=== PATIENT | female | born 1960 | race Caucasian/White ===

== ENCOUNTER → 2018-05-29 08:45 | Outpatient (CLI) | payer OTHER, SELFPAY ==
[2018-05-29 09:07] LABS: Add Manual Diff / Slide Review NO; Basophils Percent Auto 0.8 % (0-2); Eosinophils Percent Auto 1.9 % (2-4); Hematocrit 38.9 % (36-46); Lymphocytes Percent Auto 16.3 % (25-40); Mean Corpuscular HGB Conc 33.4 % (30-36); Mean Corpuscular Hemoglobin 31.1 PG (26-34); Monocytes Percent Auto 8.1 % (3-14); Neutrophils Absolute Auto 4700 /uL (3000-5900); Neutrophils Percent Auto 72.9 % (50-75); Platelet Count 239 X10^3/uL (150-400); Red Blood Cell Count 4.19 X10^6/uL (4.0-5.2); Red Cell Distribution Width 13.9 % (11.6-14.8); White Blood Cell Count 6.5 X10^3/uL (4.5-11.0)
[2018-05-29 09:16] LABS: Alanine Aminotransferase 28 IU/L (9-52); Albumin 4.5 g/dL (3.5-5.0); Albumin Globulin Ratio 1.6 (1.0-2.8); Alkaline Phosphatase 44 U/L (38-126); Aspartate Aminotransferase 32 IU/L (14-36); BUN Creatinine Ratio 23.3 (6-22); Bilirubin Total 0.3 mg/dL (0.2-1.3); Blood Urea Nitrogen 21 mg/dL (7-17); Calcium 9.5 mg/dL (8.4-10.2); Carbon Dioxide 31 mmol/L (22-32); Chloride 102 mmol/L (98-107); Estimated Glomerular Filt Rate > 60.0 mL/min (>60); Globulin 2.9 g/dL (1.7-4.1); Glucose 97 mg/dL (70-100); HEMOLYSIS < 15 (0-50); Potassium 4.2 mmol/L (3.4-5.1); Sodium 143 mmol/L (137-145); Total Protein 7.4 g/dL (6.3-8.2)
[2018-05-31 15:45] LABS: Cancer Antigen 27.29 23 U/mL (< 38)
== END ==
PROVIDERS: Family Provider Family Medicine; PCP Family Medicine; Visit Provider Nurse Practitioner Gerontology
DX: Z09 Encounter for follow-up examination after completed treatment for conditions other than malignant neoplasm (principal); Z86.000 Personal history of in-situ neoplasm of breast
CPT/HCPCS: 36415; 80053; 85025; 86300

== ENCOUNTER 2018-08-16 13:00 | Outpatient (RCR) | payer OTHER, SELFPAY ==
--- NOTE | 2018-07-05 13:02 | PT.OTN ---
Current Diagnoses Displaced bimalleolar fracture of left lower leg, initial encounter for closed fracture (07/05/18) Physical Therapy Treatment Note PT-OP-A Visit Information Start: 06/27/18 09:00 Freq: Status: Active Protocol: Document 07/05/18 11:11 EA (Rec: 07/05/18 11:16 EA [id number]) Out-Patient Physical Therapy Visit Information Visit Information Visit Type Treatment Note Visit Start Time 10:30 Visit Stop Time 11:10 Total Visit Minutes 40 Visit Number 2 PT-OP-B Current Condition Start: 06/27/18 09:00 Freq: Status: Active Protocol: Document 06/27/18 10:11 EA (Rec: 06/27/18 10:28 EA [id number]) Current Condition History of Current Condition Onset Date 03/2016 Current Complaints Left ankle localized pain with occasional dorsum numbness History of Current Condition Present condition started after ankle ORIF on due to bimalleolar comminuted fracture. Patient reports 80% recovered after formal PT but pain and aches did not resolved until today's date. Patient went to her doctor a month ago and reports no significant tissue damaged or DJD noted based on x-ray taken last month. Prior Treatments and Tests Fromal PT in 2016 after surgery Future Testing and Treatments Planned Possible rods/nail removal if PT fails Treatment Goals Patient/Caregiver Goals Patient wants to reduce ankle pain from 5/10 to 1/10. Patient wants to be able to go down stairs without difficulty Prior Functional Status Baseline Function- ADL's Independent Baseline Function- Mobility Independent Baseline Function- Gait Indep prior to surgery in 2016 Baseline Function- Work/School House Baseline Function- Recreation/Hobbies Performed regular yoga and fitness exercises Current Functional Impairments (Reported) Functional Limitations- ADL's Indep Functional Limitations- Mobility/Gait Standing, distance amb < 5 minutes Functional Limitations- Work/School House Functional Limitations- Recreation/ Unable to perform regular Hobbies fitness exercises routine due to increased in pain PT-OP-C Subjective Start: 06/27/18 09:00 Freq: Status: Active Protocol: Document 07/05/18 11:11 EA (Rec: 07/05/18 11:16 EA [id number]) OP-PT Subjective Patient Comments Patient Comments Pt reports complaint with HEP Patient Reported Progress Same PT-OP-G Mobility & Gait Start: 06/27/18 09:00 Freq: Status: Active Protocol: Document 06/27/18 14:30 EA (Rec: 06/27/18 14:36 EA [id number]) OP Gait Assessment Gait Gait Assistance Required: Independent Assistive Devices Assistive Device None Gait Deviations General Gait Pattern Antalgic Comments Gait Comments Slight decreased stance phase to left side Stair Climbing Evaluation Devices Stair Climbing Assistive Devices None Technique/Endurance Stair Climbing Direction Ascend and Descend Stair Climbing Technique Step to Step Comments Stair Climbing Comments Difficulty with descent. ( right foot leading) PT-OP-J Posture/Palpation/Skin Start: 06/27/18 09:00 Freq: Status: Active Protocol: Document 06/27/18 14:30 EA (Rec: 06/27/18 14:36 EA [id number]) Posture Evaluation Comments Posture Comments Slight pronated ankle Palpation Assessment Location One Palpation Location Medial, anterior and lateral prox L ankle joint, soleous Palpation Findings Soft Tissue Tightness Tenderness Palpation Details Mostly over the scar areas, Tight soleous PT-OP-K Range of Motion Start: 06/27/18 09:00 Freq: Status: Active Protocol: Document 06/27/18 14:36 EA (Rec: 06/27/18 14:39 EA [id number]) Ankle and Foot Goniometric Range of Motion Ankle and Foot Measured in Degrees Right Active Ankle/Foot ROM WFL Yes Left Active Testing Position Sitting Dorsiflexion with Knee Flexed 10 Dorsiflexion with Knee Extended 15 Plantarflexion 50 Inversion 35 Eversion 25 Toe Range of Motion Toe Measured in Degrees Left Great Toe Toe ROM WFL Yes PT-OP-L Special Tests Start: 06/27/18 09:00 Freq: Status: Active Protocol: Document 06/27/18 14:43 EA (Rec: 06/27/18 14:44 EA [id number]) Special Tests Foot/Ankle Special Tests Anterior Draw Test Results negative Talor Tilt Test Results negative PT-OP-Q Treatments Start: 06/27/18 09:00 Freq: Status: Active Protocol: Document 07/05/18 11:11 EA (Rec: 07/05/18 11:16 EA [id number]) Cardio Equipment Elliptical Duration (Minutes) 6 Resistance 4 Other heel up Therapeutic Exercises Standing Exercises 2 Standing Exercise Name single heel raises Side left Reps/Minutes x 10 reps x 2 sets Comments hand support 1 Standing Exercise Name step down FWD/BWD 6 Side bilateral Reps/Minutes 10 reps x 2 Comments Leading right: hand support Manual Therapy Treatment Soft Tissue Mobilization 1 Body Location Left calf, and ankle joint Mobilization Type Manual Lymphatic Drainage Myofascial Release Rolling Sustained Pressure Trigger Point Release Intensity/Depth Moderate Body Position Prone/sitting PT-OP-R Modalities Start: 06/27/18 09:00 Freq: Status: Active Protocol: Document 07/05/18 12:58 EA (Rec: 07/05/18 12:59 EA [id number]) Hot Pack/Cold Pack Treatment Hot Pack Patient Position Sitting Patient Tolerance Fair PT-OP-T Assessment and Plan Start: 06/27/18 09:00 Freq: Status: Active Protocol: Document 07/05/18 12:58 EA (Rec: 07/05/18 12:59 EA [id number]) Physical Therapy Assessment Assessment Summary Assessment Patient tolerated treatment well. Improved symptoms after manual PT. Physical Therapy Plan Next Visit Focus/Plan Next Note Type Treatment Note
--- NOTE | 2018-07-09 10:57 | PT.OTN ---
Current Diagnoses Displaced bimalleolar fracture of left lower leg, initial encounter for closed fracture (07/09/18) Physical Therapy Treatment Note PT-OP-A Visit Information Start: 06/27/18 09:00 Freq: Status: Active Protocol: Document 07/09/18 10:29 EA (Rec: 07/09/18 10:30 EA [id number]) Out-Patient Physical Therapy Visit Information Visit Information Visit Type Treatment Note Visit Start Time 09:45 Visit Stop Time 10:30 Total Visit Minutes 40 Visit Number 3 PT-OP-B Current Condition Start: 06/27/18 09:00 Freq: Status: Active Protocol: Document 06/27/18 10:11 EA (Rec: 06/27/18 10:28 EA [id number]) Current Condition History of Current Condition Onset Date 03/2016 Current Complaints Left ankle localized pain with occasional dorsum numbness History of Current Condition Present condition started after ankle ORIF on due to bimalleolar comminuted fracture. Patient reports 80% recovered after formal PT but pain and aches did not resolved until today's date. Patient went to her doctor a month ago and reports no significant tissue damaged or DJD noted based on x-ray taken last month. Prior Treatments and Tests Fromal PT in 2016 after surgery Future Testing and Treatments Planned Possible rods/nail removal if PT fails Treatment Goals Patient/Caregiver Goals Patient wants to reduce ankle pain from 5/10 to 1/10. Patient wants to be able to go down stairs without difficulty Prior Functional Status Baseline Function- ADL's Independent Baseline Function- Mobility Independent Baseline Function- Gait Indep prior to surgery in 2016 Baseline Function- Work/School House Baseline Function- Recreation/Hobbies Performed regular yoga and fitness exercises Current Functional Impairments (Reported) Functional Limitations- ADL's Indep Functional Limitations- Mobility/Gait Standing, distance amb < 5 minutes Functional Limitations- Work/School House Functional Limitations- Recreation/ Unable to perform regular Hobbies fitness exercises routine due to increased in pain PT-OP-C Subjective Start: 06/27/18 09:00 Freq: Status: Active Protocol: Document 07/09/18 09:50 EA (Rec: 07/09/18 10:29 EA [id number]) OP-PT Subjective Patient Comments Patient Comments Pt reports left foot is quite sore after last session; stated a bit better today. PT-OP-G Mobility & Gait Start: 06/27/18 09:00 Freq: Status: Active Protocol: Document 06/27/18 14:30 EA (Rec: 06/27/18 14:36 EA [id number]) OP Gait Assessment Gait Gait Assistance Required: Independent Assistive Devices Assistive Device None Gait Deviations General Gait Pattern Antalgic Comments Gait Comments Slight decreased stance phase to left side Stair Climbing Evaluation Devices Stair Climbing Assistive Devices None Technique/Endurance Stair Climbing Direction Ascend and Descend Stair Climbing Technique Step to Step Comments Stair Climbing Comments Difficulty with descent. ( right foot leading) PT-OP-J Posture/Palpation/Skin Start: 06/27/18 09:00 Freq: Status: Active Protocol: Document 06/27/18 14:30 EA (Rec: 06/27/18 14:36 EA [id number]) Posture Evaluation Comments Posture Comments Slight pronated ankle Palpation Assessment Location One Palpation Location Medial, anterior and lateral prox L ankle joint, soleous Palpation Findings Soft Tissue Tightness Tenderness Palpation Details Mostly over the scar areas, Tight soleous PT-OP-K Range of Motion Start: 06/27/18 09:00 Freq: Status: Active Protocol: Document 06/27/18 14:36 EA (Rec: 06/27/18 14:39 EA [id number]) Ankle and Foot Goniometric Range of Motion Ankle and Foot Measured in Degrees Right Active Ankle/Foot ROM WFL Yes Left Active Testing Position Sitting Dorsiflexion with Knee Flexed 10 Dorsiflexion with Knee Extended 15 Plantarflexion 50 Inversion 35 Eversion 25 Toe Range of Motion Toe Measured in Degrees Left Great Toe Toe ROM WFL Yes PT-OP-L Special Tests Start: 06/27/18 09:00 Freq: Status: Active Protocol: Document 06/27/18 14:43 EA (Rec: 06/27/18 14:44 EA [id number]) Special Tests Foot/Ankle Special Tests Anterior Draw Test Results negative Talor Tilt Test Results negative PT-OP-Q Treatments Start: 06/27/18 09:00 Freq: Status: Active Protocol: Document 07/09/18 09:50 EA (Rec: 07/09/18 10:29 EA [id number]) Cardio Equipment Elliptical Duration (Minutes) 5 Resistance 4 Other heel up Gym Equipment Shuttle Recovery Unilateral Squats Resistance 2.5 cords Shuttle Recovery Platform Stable Therapeutic Exercises Standing Exercises 3 Standing Exercise Name steady lunges Reps/Minutes x 8 reps x 2 sets each leg 2 Standing Exercise Name single heel raises Side left Reps/Minutes x 10 reps x 2 sets Comments hand support 1 Standing Exercise Name step down FWD/BWD 6 Side bilateral Reps/Minutes 10 reps x 2 Comments Leading right: hand support Manual Therapy Treatment Soft Tissue Mobilization 1 Body Location Left calf, and ankle joint Mobilization Type Manual Lymphatic Drainage Myofascial Release Rolling Sustained Pressure Trigger Point Release Intensity/Depth Moderate Body Position Prone/sitting PT-OP-R Modalities Start: 06/27/18 09:00 Freq: Status: Active Protocol: Document 07/09/18 09:50 EA (Rec: 07/09/18 10:29 EA [id number]) Hot Pack/Cold Pack Treatment Hot Pack Location left ankle Patient Position Sitting Patient Tolerance Good PT-OP-T Assessment and Plan Start: 06/27/18 09:00 Freq: Status: Active Protocol: Document 07/09/18 09:50 EA (Rec: 07/09/18 10:29 EA [id number]) Physical Therapy Assessment Assessment Summary Assessment Pt performed exercises with good form. Patient is progressing well. Advance to plyometrics Physical Therapy Plan Next Visit Focus/Plan Next Note Type Treatment Note
--- NOTE | 2018-07-12 16:43 | PT.OTN ---
Current Diagnoses Displaced bimalleolar fracture of left lower leg, initial encounter for closed fracture (07/12/18) Physical Therapy Treatment Note PT-OP-A Visit Information Start: 06/27/18 09:00 Freq: Status: Active Protocol: Document 07/12/18 13:44 EA (Rec: 07/12/18 13:49 EA [id number]) Out-Patient Physical Therapy Visit Information Visit Information Visit Type Treatment Note Visit Start Time 13:00 Visit Stop Time 13:45 Total Visit Minutes 45 Visit Number 4 PT-OP-B Current Condition Start: 06/27/18 09:00 Freq: Status: Active Protocol: Document 06/27/18 10:11 EA (Rec: 06/27/18 10:28 EA [id number]) Current Condition History of Current Condition Onset Date 03/2016 Current Complaints Left ankle localized pain with occasional dorsum numbness History of Current Condition Present condition started after ankle ORIF on due to bimalleolar comminuted fracture. Patient reports 80% recovered after formal PT but pain and aches did not resolved until today's date. Patient went to her doctor a month ago and reports no significant tissue damaged or DJD noted based on x-ray taken last month. Prior Treatments and Tests Fromal PT in 2016 after surgery Future Testing and Treatments Planned Possible rods/nail removal if PT fails Treatment Goals Patient/Caregiver Goals Patient wants to reduce ankle pain from 5/10 to 1/10. Patient wants to be able to go down stairs without difficulty Prior Functional Status Baseline Function- ADL's Independent Baseline Function- Mobility Independent Baseline Function- Gait Indep prior to surgery in 2016 Baseline Function- Work/School House Baseline Function- Recreation/Hobbies Performed regular yoga and fitness exercises Current Functional Impairments (Reported) Functional Limitations- ADL's Indep Functional Limitations- Mobility/Gait Standing, distance amb < 5 minutes Functional Limitations- Work/School House Functional Limitations- Recreation/ Unable to perform regular Hobbies fitness exercises routine due to increased in pain PT-OP-C Subjective Start: 06/27/18 09:00 Freq: Status: Active Protocol: Document 07/12/18 13:44 EA (Rec: 07/12/18 13:49 EA [id number]) OP-PT Subjective Patient Comments Patient Comments Pt reports left ankle is much better; states a bit cramps at night but only when sleeping. Patient Reported Progress Improving PT-OP-G Mobility & Gait Start: 06/27/18 09:00 Freq: Status: Active Protocol: Document 06/27/18 14:30 EA (Rec: 06/27/18 14:36 EA [id number]) OP Gait Assessment Gait Gait Assistance Required: Independent Assistive Devices Assistive Device None Gait Deviations General Gait Pattern Antalgic Comments Gait Comments Slight decreased stance phase to left side Stair Climbing Evaluation Devices Stair Climbing Assistive Devices None Technique/Endurance Stair Climbing Direction Ascend and Descend Stair Climbing Technique Step to Step Comments Stair Climbing Comments Difficulty with descent. ( right foot leading) PT-OP-J Posture/Palpation/Skin Start: 06/27/18 09:00 Freq: Status: Active Protocol: Document 06/27/18 14:30 EA (Rec: 06/27/18 14:36 EA [id number]) Posture Evaluation Comments Posture Comments Slight pronated ankle Palpation Assessment Location One Palpation Location Medial, anterior and lateral prox L ankle joint, soleous Palpation Findings Soft Tissue Tightness Tenderness Palpation Details Mostly over the scar areas, Tight soleous PT-OP-K Range of Motion Start: 06/27/18 09:00 Freq: Status: Active Protocol: Document 06/27/18 14:36 EA (Rec: 06/27/18 14:39 EA [id number]) Ankle and Foot Goniometric Range of Motion Ankle and Foot Measured in Degrees Right Active Ankle/Foot ROM WFL Yes Left Active Testing Position Sitting Dorsiflexion with Knee Flexed 10 Dorsiflexion with Knee Extended 15 Plantarflexion 50 Inversion 35 Eversion 25 Toe Range of Motion Toe Measured in Degrees Left Great Toe Toe ROM WFL Yes PT-OP-L Special Tests Start: 06/27/18 09:00 Freq: Status: Active Protocol: Document 06/27/18 14:43 EA (Rec: 06/27/18 14:44 EA [id number]) Special Tests Foot/Ankle Special Tests Anterior Draw Test Results negative Talor Tilt Test Results negative PT-OP-Q Treatments Start: 06/27/18 09:00 Freq: Status: Active Protocol: Document 07/12/18 13:44 EA (Rec: 07/12/18 13:49 EA [id number]) Cardio Equipment Elliptical Duration (Minutes) 5 Resistance 4 Other heel up Gym Equipment Shuttle Recovery Unilateral Squats Resistance 2.5 cords Shuttle Recovery Platform Stable Reps/Time 1 cord, plyometrics Therapeutic Exercises Standing Exercises 4 Standing Exercise Name BUSO step up/down Reps/Minutes x 30 sec x 3 reps each Comments FWD/SWD 3 Standing Exercise Name steady lunges Reps/Minutes x 8 reps x 2 sets each leg 2 Standing Exercise Name single heel raises Side left Reps/Minutes x 10 reps x 2 sets Comments hand support 1 Standing Exercise Name step down FWD/BWD 6 Side bilateral Reps/Minutes 10 reps x 2 Comments Leading right: hand support Manual Therapy Treatment Soft Tissue Mobilization 1 Body Location Left calf, and ankle joint Mobilization Type Cross-Friction Manual Lymphatic Drainage Myofascial Release Rolling Sustained Pressure Trigger Point Release Intensity/Depth Deep Body Position Prone/sitting PT-OP-R Modalities Start: 06/27/18 09:00 Freq: Status: Active Protocol: Document 07/12/18 13:44 EA (Rec: 07/12/18 13:49 EA [id number]) Hot Pack/Cold Pack Treatment Cold Pack Patient Position Sitting Treatment Duration (minutes) 15 Patient Tolerance Good PT-OP-T Assessment and Plan Start: 06/27/18 09:00 Freq: Status: Active Protocol: Document 07/12/18 13:44 EA (Rec: 07/12/18 13:49 EA [id number]) Physical Therapy Assessment Assessment Summary Assessment Improved functional mobility with less discomfort at this time. patient cont to progress . Physical Therapy Plan Next Visit Focus/Plan Next Note Type Treatment Note Next Visit Plan advance standing exercises.
--- NOTE | 2018-07-18 10:45 | PT.OTN ---
Current Diagnoses Displaced bimalleolar fracture of left lower leg, initial encounter for closed fracture (07/18/18) Physical Therapy Treatment Note PT-OP-A Visit Information Start: 06/27/18 09:00 Freq: Status: Active Protocol: Document 07/18/18 10:31 EA (Rec: 07/18/18 10:41 EA [id number]) Out-Patient Physical Therapy Visit Information Visit Information Visit Type Treatment Note Visit Start Time 09:45 Visit Stop Time 10:38 Total Visit Minutes 53 Visit Number 5 PT-OP-B Current Condition Start: 06/27/18 09:00 Freq: Status: Active Protocol: Document 06/27/18 10:11 EA (Rec: 06/27/18 10:28 EA [id number]) Current Condition History of Current Condition Onset Date 03/2016 Current Complaints Left ankle localized pain with occasional dorsum numbness History of Current Condition Present condition started after ankle ORIF on due to bimalleolar comminuted fracture. Patient reports 80% recovered after formal PT but pain and aches did not resolved until today's date. Patient went to her doctor a month ago and reports no significant tissue damaged or DJD noted based on x-ray taken last month. Prior Treatments and Tests Fromal PT in 2016 after surgery Future Testing and Treatments Planned Possible rods/nail removal if PT fails Treatment Goals Patient/Caregiver Goals Patient wants to reduce ankle pain from 5/10 to 1/10. Patient wants to be able to go down stairs without difficulty Prior Functional Status Baseline Function- ADL's Independent Baseline Function- Mobility Independent Baseline Function- Gait Indep prior to surgery in 2016 Baseline Function- Work/School House Baseline Function- Recreation/Hobbies Performed regular yoga and fitness exercises Current Functional Impairments (Reported) Functional Limitations- ADL's Indep Functional Limitations- Mobility/Gait Standing, distance amb < 5 minutes Functional Limitations- Work/School House Functional Limitations- Recreation/ Unable to perform regular Hobbies fitness exercises routine due to increased in pain PT-OP-C Subjective Start: 06/27/18 09:00 Freq: Status: Active Protocol: Document 07/18/18 10:31 EA (Rec: 07/18/18 10:41 EA [id number]) OP-PT Subjective Patient Comments Patient Comments Pt reports unable to sleep due to left ankle pain;states no recent injury and she has been consistent though with HEP; patient denies loss of function or any acute signs of swelling. Patient Reported Progress Improving PT-OP-G Mobility & Gait Start: 06/27/18 09:00 Freq: Status: Active Protocol: Document 06/27/18 14:30 EA (Rec: 06/27/18 14:36 EA [id number]) OP Gait Assessment Gait Gait Assistance Required: Independent Assistive Devices Assistive Device None Gait Deviations General Gait Pattern Antalgic Comments Gait Comments Slight decreased stance phase to left side Stair Climbing Evaluation Devices Stair Climbing Assistive Devices None Technique/Endurance Stair Climbing Direction Ascend and Descend Stair Climbing Technique Step to Step Comments Stair Climbing Comments Difficulty with descent. ( right foot leading) PT-OP-J Posture/Palpation/Skin Start: 06/27/18 09:00 Freq: Status: Active Protocol: Document 06/27/18 14:30 EA (Rec: 06/27/18 14:36 EA [id number]) Posture Evaluation Comments Posture Comments Slight pronated ankle Palpation Assessment Location One Palpation Location Medial, anterior and lateral prox L ankle joint, soleous Palpation Findings Soft Tissue Tightness Tenderness Palpation Details Mostly over the scar areas, Tight soleous PT-OP-K Range of Motion Start: 06/27/18 09:00 Freq: Status: Active Protocol: Document 06/27/18 14:36 EA (Rec: 06/27/18 14:39 EA [id number]) Ankle and Foot Goniometric Range of Motion Ankle and Foot Measured in Degrees Right Active Ankle/Foot ROM WFL Yes Left Active Testing Position Sitting Dorsiflexion with Knee Flexed 10 Dorsiflexion with Knee Extended 15 Plantarflexion 50 Inversion 35 Eversion 25 Toe Range of Motion Toe Measured in Degrees Left Great Toe Toe ROM WFL Yes PT-OP-L Special Tests Start: 06/27/18 09:00 Freq: Status: Active Protocol: Document 06/27/18 14:43 EA (Rec: 06/27/18 14:44 EA [id number]) Special Tests Foot/Ankle Special Tests Anterior Draw Test Results negative Talor Tilt Test Results negative PT-OP-Q Treatments Start: 06/27/18 09:00 Freq: Status: Active Protocol: Document 07/18/18 10:31 EA (Rec: 07/18/18 10:41 EA [id number]) Cardio Equipment Recumbent Bicycle Duration (Minutes) 5 Resistance 4 Therapeutic Exercises Standing Exercises 5 Standing Exercise Name SLS Side left Reps/Minutes x 30 secs x 3 4 Standing Exercise Name BUSO standing: PF/DF/EVER/INV Reps/Minutes x 30 sec x 3 reps each 2 Standing Exercise Name double heel raises Side left Reps/Minutes x 10 reps x 2 sets Comments hand support 1 Standing Exercise Name step down FWD/BWD 6 Side bilateral Reps/Minutes 10 reps x 2 Comments Leading right: hand support Manual Therapy Treatment Soft Tissue Mobilization 1 Body Location Left calf, and ankle joint Mobilization Type Cross-Friction Manual Lymphatic Drainage Myofascial Release Rolling Sustained Pressure Trigger Point Release Intensity/Depth Deep Body Position Prone/sitting PT-OP-R Modalities Start: 06/27/18 09:00 Freq: Status: Active Protocol: Document 07/18/18 10:31 EA (Rec: 07/18/18 10:41 EA [id number]) Electric Stimulation Electric Stimulation Interferential Current (IFC) Body Location left calf/medial side Intensity 12 Patient Position Sitting Combined With Heat/Cold Cold Pack PT-OP-T Assessment and Plan Start: 06/27/18 09:00 Freq: Status: Active Protocol: Document 07/18/18 10:31 EA (Rec: 07/18/18 10:41 EA [id number]) Physical Therapy Assessment Assessment Summary Assessment Tender to medial and anterolateal L ankle joint but no signs of acute inflammation. Decreased pain with weight bearing mobility after manual PT. Advised to ICE at home x 20 mins before STS. Physical Therapy Plan Next Visit Focus/Plan Next Note Type Treatment Note
--- NOTE | 2018-07-20 09:55 | PT.OTN ---
Current Diagnoses Displaced bimalleolar fracture of left lower leg, initial encounter for closed fracture (07/20/18) Physical Therapy Treatment Note PT-OP-A Visit Information Start: 06/27/18 09:00 Freq: Status: Active Protocol: Document 07/20/18 09:43 SA (Rec: 07/20/18 09:55 SA [id number]) Out-Patient Physical Therapy Visit Information Visit Information Visit Type Treatment Note Visit Start Time 09:00 Visit Stop Time 09:50 Total Visit Minutes 50 Visit Number 6 Number of COLORS CUSTODIAN Visits 1 PT-OP-B Current Condition Start: 06/27/18 09:00 Freq: Status: Active Protocol: Document 06/27/18 10:11 EA (Rec: 06/27/18 10:28 EA [id number]) Current Condition History of Current Condition Onset Date 03/2016 Current Complaints Left ankle localized pain with occasional dorsum numbness History of Current Condition Present condition started after ankle ORIF on due to bimalleolar comminuted fracture. Patient reports 80% recovered after formal PT but pain and aches did not resolved until today's date. Patient went to her doctor a month ago and reports no significant tissue damaged or DJD noted based on x-ray taken last month. Prior Treatments and Tests Fromal PT in 2016 after surgery Future Testing and Treatments Planned Possible rods/nail removal if PT fails Treatment Goals Patient/Caregiver Goals Patient wants to reduce ankle pain from 5/10 to 1/10. Patient wants to be able to go down stairs without difficulty Prior Functional Status Baseline Function- ADL's Independent Baseline Function- Mobility Independent Baseline Function- Gait Indep prior to surgery in 2016 Baseline Function- Work/School House Baseline Function- Recreation/Hobbies Performed regular yoga and fitness exercises Current Functional Impairments (Reported) Functional Limitations- ADL's Indep Functional Limitations- Mobility/Gait Standing, distance amb < 5 minutes Functional Limitations- Work/School House Functional Limitations- Recreation/ Unable to perform regular Hobbies fitness exercises routine due to increased in pain PT-OP-C Subjective Start: 06/27/18 09:00 Freq: Status: Active Protocol: Document 07/20/18 09:43 SA (Rec: 07/20/18 09:55 SA [id number]) OP-PT Subjective Patient Comments Patient Comments Pt reports feeling sore after last visit but understands this is part of the process. States that walking backwards was difficult but plans to continue as part of HEP. PT-OP-G Mobility & Gait Start: 06/27/18 09:00 Freq: Status: Active Protocol: Document 06/27/18 14:30 EA (Rec: 06/27/18 14:36 EA [id number]) OP Gait Assessment Gait Gait Assistance Required: Independent Assistive Devices Assistive Device None Gait Deviations General Gait Pattern Antalgic Comments Gait Comments Slight decreased stance phase to left side Stair Climbing Evaluation Devices Stair Climbing Assistive Devices None Technique/Endurance Stair Climbing Direction Ascend and Descend Stair Climbing Technique Step to Step Comments Stair Climbing Comments Difficulty with descent. ( right foot leading) PT-OP-J Posture/Palpation/Skin Start: 06/27/18 09:00 Freq: Status: Active Protocol: Document 06/27/18 14:30 EA (Rec: 06/27/18 14:36 EA [id number]) Posture Evaluation Comments Posture Comments Slight pronated ankle Palpation Assessment Location One Palpation Location Medial, anterior and lateral prox L ankle joint, soleous Palpation Findings Soft Tissue Tightness Tenderness Palpation Details Mostly over the scar areas, Tight soleous PT-OP-K Range of Motion Start: 06/27/18 09:00 Freq: Status: Active Protocol: Document 06/27/18 14:36 EA (Rec: 06/27/18 14:39 EA [id number]) Ankle and Foot Goniometric Range of Motion Ankle and Foot Measured in Degrees Right Active Ankle/Foot ROM WFL Yes Left Active Testing Position Sitting Dorsiflexion with Knee Flexed 10 Dorsiflexion with Knee Extended 15 Plantarflexion 50 Inversion 35 Eversion 25 Toe Range of Motion Toe Measured in Degrees Left Great Toe Toe ROM WFL Yes PT-OP-L Special Tests Start: 06/27/18 09:00 Freq: Status: Active Protocol: Document 06/27/18 14:43 EA (Rec: 06/27/18 14:44 EA [id number]) Special Tests Foot/Ankle Special Tests Anterior Draw Test Results negative Talor Tilt Test Results negative PT-OP-Q Treatments Start: 06/27/18 09:00 Freq: Status: Active Protocol: Document 07/20/18 09:43 SA (Rec: 07/20/18 09:55 SA [id number]) Cardio Equipment Elliptical Duration (Minutes) 5 Resistance 4 Other heel up Gym Equipment Shuttle Recovery Unilateral Squats Resistance 2.5 cords Shuttle Recovery Platform Stable Reps/Time 1 cord, plyometrics Therapeutic Exercises Standing Exercises 5 Standing Exercise Name SLS Side left Reps/Minutes x 30 secs x 3 4 Standing Exercise Name BUSO standing: PF/DF/EVER/INV Reps/Minutes x 30 sec x 3 reps each 3 Standing Exercise Name steady lunges Reps/Minutes x 8 reps x 2 sets each leg 2 Standing Exercise Name double heel raises Side left Reps/Minutes x 10 reps x 2 sets Comments hand support 1 Standing Exercise Name step down FWD/BWD 6 Side bilateral Reps/Minutes 10 reps x 2 Comments Leading right: hand support Manual Therapy Treatment Soft Tissue Mobilization 1 Body Location Left calf, and ankle joint Mobilization Type Cross-Friction Manual Lymphatic Drainage Myofascial Release Rolling Sustained Pressure Trigger Point Release Intensity/Depth Deep Body Position Prone/sitting PT-OP-R Modalities Start: 06/27/18 09:00 Freq: Status: Active Protocol: Document 07/20/18 09:43 (Rec: 07/20/18 09:55 [id number]) Electric Stimulation Electric Stimulation Interferential Current (IFC) Body Location left calf/medial side Intensity 12 Patient Position Sitting Combined With Heat/Cold Cold Pack PT-OP-T Assessment and Plan Start: 06/27/18 09:00 Freq: Status: Active Protocol: Document 07/20/18 09:43 (Rec: 07/20/18 09:55 [email or web address]) Physical Therapy Assessment Assessment Summary Assessment Continued point tenderness at medial and anterolateral L ankle joint but pt tolerating exercise and manual therapy well. Pt plans to use CP before bed and responded well to e-stim and CP in clinic. Physical Therapy Plan Next Visit Focus/Plan Next Note Type Treatment Note Next Visit Plan Continue to progress standing dynamic exercise as tolerated.
--- NOTE | 2018-07-25 10:32 | PT.OTN ---
Current Diagnoses Displaced bimalleolar fracture of left lower leg, initial encounter for closed fracture (07/25/18) Physical Therapy Treatment Note PT-OP-A Visit Information Start: 06/27/18 09:00 Freq: Status: Active Protocol: Document 07/25/18 09:16 EA (Rec: 07/25/18 09:48 EA [id number]) Out-Patient Physical Therapy Visit Information Visit Information Visit Type Treatment Note Visit Start Time 09:00 Visit Stop Time 09:50 Total Visit Minutes 50 Visit Number 6 Number of VEST BUSHELER Visits 1 PT-OP-B Current Condition Start: 06/27/18 09:00 Freq: Status: Active Protocol: Document 06/27/18 10:11 EA (Rec: 06/27/18 10:28 EA [id number]) Current Condition History of Current Condition Onset Date 03/2016 Current Complaints Left ankle localized pain with occasional dorsum numbness History of Current Condition Present condition started after ankle ORIF on due to bimalleolar comminuted fracture. Patient reports 80% recovered after formal PT but pain and aches did not resolved until today's date. Patient went to her doctor a month ago and reports no significant tissue damaged or DJD noted based on x-ray taken last month. Prior Treatments and Tests Fromal PT in 2016 after surgery Future Testing and Treatments Planned Possible rods/nail removal if PT fails Treatment Goals Patient/Caregiver Goals Patient wants to reduce ankle pain from 5/10 to 1/10. Patient wants to be able to go down stairs without difficulty Prior Functional Status Baseline Function- ADL's Independent Baseline Function- Mobility Independent Baseline Function- Gait Indep prior to surgery in 2016 Baseline Function- Work/School House Baseline Function- Recreation/Hobbies Performed regular yoga and fitness exercises Current Functional Impairments (Reported) Functional Limitations- ADL's Indep Functional Limitations- Mobility/Gait Standing, distance amb < 5 minutes Functional Limitations- Work/School House Functional Limitations- Recreation/ Unable to perform regular Hobbies fitness exercises routine due to increased in pain PT-OP-C Subjective Start: 06/27/18 09:00 Freq: Status: Active Protocol: Document 07/25/18 09:16 EA (Rec: 07/25/18 09:48 EA [id number]) OP-PT Subjective Patient Comments Patient Comments Pt reprots complaint with HEP; states pain still occurs with uneven surfaces walking. Patient Reported Progress Improving PT-OP-G Mobility & Gait Start: 06/27/18 09:00 Freq: Status: Active Protocol: Document 06/27/18 14:30 EA (Rec: 06/27/18 14:36 EA [id number]) OP Gait Assessment Gait Gait Assistance Required: Independent Assistive Devices Assistive Device None Gait Deviations General Gait Pattern Antalgic Comments Gait Comments Slight decreased stance phase to left side Stair Climbing Evaluation Devices Stair Climbing Assistive Devices None Technique/Endurance Stair Climbing Direction Ascend and Descend Stair Climbing Technique Step to Step Comments Stair Climbing Comments Difficulty with descent. ( right foot leading) PT-OP-J Posture/Palpation/Skin Start: 06/27/18 09:00 Freq: Status: Active Protocol: Document 06/27/18 14:30 EA (Rec: 06/27/18 14:36 EA [id number]) Posture Evaluation Comments Posture Comments Slight pronated ankle Palpation Assessment Location One Palpation Location Medial, anterior and lateral prox L ankle joint, soleous Palpation Findings Soft Tissue Tightness Tenderness Palpation Details Mostly over the scar areas, Tight soleous PT-OP-K Range of Motion Start: 06/27/18 09:00 Freq: Status: Active Protocol: Document 06/27/18 14:36 EA (Rec: 06/27/18 14:39 EA [id number]) Ankle and Foot Goniometric Range of Motion Ankle and Foot Measured in Degrees Right Active Ankle/Foot ROM WFL Yes Left Active Testing Position Sitting Dorsiflexion with Knee Flexed 10 Dorsiflexion with Knee Extended 15 Plantarflexion 50 Inversion 35 Eversion 25 Toe Range of Motion Toe Measured in Degrees Left Great Toe Toe ROM WFL Yes PT-OP-L Special Tests Start: 06/27/18 09:00 Freq: Status: Active Protocol: Document 06/27/18 14:43 EA (Rec: 06/27/18 14:44 EA [id number]) Special Tests Foot/Ankle Special Tests Anterior Draw Test Results negative Talor Tilt Test Results negative PT-OP-Q Treatments Start: 06/27/18 09:00 Freq: Status: Active Protocol: Document 07/25/18 09:16 EA (Rec: 07/25/18 09:48 EA [id number]) Cardio Equipment Treadmill Duration (Minutes) 10 Speed 1.5-2.4 Incline /12 Other cues to push off with left off on elevation. Gym Equipment Shuttle Recovery Unilateral Squats Resistance 2.5 cords Shuttle Recovery Platform Stable Reps/Time 1 cord, plyometrics Therapeutic Exercises Standing Exercises 5 Standing Exercise Name SLS Side left Reps/Minutes x 30 secs x 3 Comments even, green to blue foam 4 Standing Exercise Name BUSO standing: PF/DF/EVER/INV Reps/Minutes x 30 sec x 3 reps each 3 Standing Exercise Name steady lunges Reps/Minutes x 8 reps x 2 sets each leg 2 Standing Exercise Name double heel raises Side left Reps/Minutes x 10 reps x 2 sets Comments double to single 1 Standing Exercise Name step down FWD/BWD 6 Side bilateral Reps/Minutes 10 reps x 2 Comments Leading right: hand support Manual Therapy Treatment Soft Tissue Mobilization 1 Body Location Left calf, and ankle joint Mobilization Type Cross-Friction Manual Lymphatic Drainage Myofascial Release Rolling Sustained Pressure Trigger Point Release Intensity/Depth Deep Body Position Prone/sitting PT-OP-R Modalities Start: 06/27/18 09:00 Freq: Status: Active Protocol: Document 07/25/18 09:16 EA (Rec: 07/25/18 09:48 EA [id number]) Hot Pack/Cold Pack Treatment Cold Pack Patient Position Sitting Treatment Duration (minutes) 10 Patient Tolerance Good PT-OP-T Assessment and Plan Start: 06/27/18 09:00 Freq: Status: Active Protocol: Document 07/25/18 09:16 EA (Rec: 07/25/18 09:48 EA [id number]) Physical Therapy Assessment Assessment Summary Assessment Pt tolerated treatment with minor discomfort at SLS and treadmill elevated LLE pushed off that requires interval rest. Physical Therapy Plan Next Visit Focus/Plan Next Note Type Treatment Note Next Visit Plan to begin with treadmill exercises.
--- NOTE | 2018-07-27 13:44 | PT.OTN ---
Current Diagnoses Displaced bimalleolar fracture of left lower leg, initial encounter for closed fracture (07/27/18) Physical Therapy Treatment Note PT-OP-A Visit Information Start: 06/27/18 09:00 Freq: Status: Active Protocol: Document 07/27/18 08:18 [facility] (Rec: 07/27/18 13:44 [facility] [id number]) Out-Patient Physical Therapy Visit Information Visit Information Visit Type Treatment Note Visit Start Time 08:15 Visit Stop Time 09:10 Total Visit Minutes 55 Visit Number 7 Number of FOOD AND NUTRITION SERVICES ASSISTANT Visits 0 PT-OP-B Current Condition Start: 06/27/18 09:00 Freq: Status: Active Protocol: Document 06/27/18 10:11 EA (Rec: 06/27/18 10:28 EA [id number]) Current Condition History of Current Condition Onset Date 03/2016 Current Complaints Left ankle localized pain with occasional dorsum numbness History of Current Condition Present condition started after ankle ORIF on due to bimalleolar comminuted fracture. Patient reports 80% recovered after formal PT but pain and aches did not resolved until today's date. Patient went to her doctor a month ago and reports no significant tissue damaged or DJD noted based on x-ray taken last month. Prior Treatments and Tests Fromal PT in 2016 after surgery Future Testing and Treatments Planned Possible rods/nail removal if PT fails Treatment Goals Patient/Caregiver Goals Patient wants to reduce ankle pain from 5/10 to 1/10. Patient wants to be able to go down stairs without difficulty Prior Functional Status Baseline Function- ADL's Independent Baseline Function- Mobility Independent Baseline Function- Gait Indep prior to surgery in 2016 Baseline Function- Work/School House Baseline Function- Recreation/Hobbies Performed regular yoga and fitness exercises Current Functional Impairments (Reported) Functional Limitations- ADL's Indep Functional Limitations- Mobility/Gait Standing, distance amb < 5 minutes Functional Limitations- Work/School House Functional Limitations- Recreation/ Unable to perform regular Hobbies fitness exercises routine due to increased in pain PT-OP-C Subjective Start: 06/27/18 09:00 Freq: Status: Active Protocol: Document 07/27/18 08:18 [facility] (Rec: 07/27/18 13:44 [facility] [id number]) OP-PT Subjective Patient Comments Patient Comments Reports HEP is going well. Notes she still has to slow down sometimes d/t pain. reports difficulty sleeping PT-OP-G Mobility & Gait Start: 06/27/18 09:00 Freq: Status: Active Protocol: Document 06/27/18 14:30 EA (Rec: 06/27/18 14:36 EA [id number]) OP Gait Assessment Gait Gait Assistance Required: Independent Assistive Devices Assistive Device None Gait Deviations General Gait Pattern Antalgic Comments Gait Comments Slight decreased stance phase to left side Stair Climbing Evaluation Devices Stair Climbing Assistive Devices None Technique/Endurance Stair Climbing Direction Ascend and Descend Stair Climbing Technique Step to Step Comments Stair Climbing Comments Difficulty with descent. ( right foot leading) PT-OP-J Posture/Palpation/Skin Start: 06/27/18 09:00 Freq: Status: Active Protocol: Document 06/27/18 14:30 EA (Rec: 06/27/18 14:36 EA [id number]) Posture Evaluation Comments Posture Comments Slight pronated ankle Palpation Assessment Location One Palpation Location Medial, anterior and lateral prox L ankle joint, soleous Palpation Findings Soft Tissue Tightness Tenderness Palpation Details Mostly over the scar areas, Tight soleous PT-OP-K Range of Motion Start: 06/27/18 09:00 Freq: Status: Active Protocol: Document 06/27/18 14:36 EA (Rec: 06/27/18 14:39 EA [id number]) Ankle and Foot Goniometric Range of Motion Ankle and Foot Measured in Degrees Right Active Ankle/Foot ROM WFL Yes Left Active Testing Position Sitting Dorsiflexion with Knee Flexed 10 Dorsiflexion with Knee Extended 15 Plantarflexion 50 Inversion 35 Eversion 25 Toe Range of Motion Toe Measured in Degrees Left Great Toe Toe ROM WFL Yes PT-OP-L Special Tests Start: 06/27/18 09:00 Freq: Status: Active Protocol: Document 06/27/18 14:43 EA (Rec: 06/27/18 14:44 EA [id number]) Special Tests Foot/Ankle Special Tests Anterior Draw Test Results negative Talor Tilt Test Results negative PT-OP-Q Treatments Start: 06/27/18 09:00 Freq: Status: Active Protocol: Document 07/27/18 08:18 LR (Rec: 07/27/18 13:44 [facility] [id number]) Cardio Equipment Treadmill Duration (Minutes) 11 Speed 1.5-2.0 Incline 09/26/04/04 Other cues to push off with left off on elevation. Therapeutic Exercises Supine Exercises shankar test stretch Supine Exercise Name shankar test stretch Reps/Minutes 30 sec Comments to help improve ext for appropriate push off mechanics Standing Exercises arch lifts Standing Exercise Name arch lift Reps/Minutes 10 Therapeutic Activity Therapeutic Activity sleeping Name s/l sleeping position edu for comfort of L ankle Gait Training Gait Activity stairs Description up/down 4 in then 6 in stair Comments 3 x ea with focus on appropriate fwd lean through feet and use of 1 rail Manual Therapy Treatment Soft Tissue Mobilization 1 Body Location Left calf, and ankle joint Mobilization Type Cross-Friction Manual Lymphatic Drainage Myofascial Release Rolling Sustained Pressure Trigger Point Release Intensity/Depth Deep Body Position Sitting Comments focus through med scar and med calcaneus Joint Mobilizations calcaneotalar Joint calcaneus Direction distraction, med glide & lat tilt FM PT-OP-R Modalities Start: 06/27/18 09:00 Freq: Status: Active Protocol: Document 07/27/18 08:18 [facility] (Rec: 07/27/18 13:44 [facility] [id number]) Hot Pack/Cold Pack Treatment Cold Pack Patient Position Sitting Treatment Duration (minutes) 10 Patient Tolerance Good PT-OP-T Assessment and Plan Start: 06/27/18 09:00 Freq: Status: Active Protocol: Document 07/27/18 08:18 [facility] (Rec: 07/27/18 13:44 [facility] [id number]) Physical Therapy Assessment Assessment Summary Assessment Pt had dec pain with stairs after manual therapy. She was able to amb 1 min and 45 sec at 12% incline today and is improved with stair mobility with cueing and after manual therapy, she was able to go down 3 steps reciprocally with 1 rail and min pain. Pt may have pelvis dysfuction after boot d/t c/o pain in pelvis and notable L pelvis ER during push off phase of gait. She was able to be set up in improved position for sleeping but may require further management after working on positioning at home. Physical Therapy Plan Frequency and Duration Frequency of Treatment 2x/Week Duration of Treatment 8 wks Plan of Care Start Date 06/27/18 Plan of Care End Date 09/05/18 Next Visit Focus/Plan Next Note Type Treatment Note Next Visit Plan cont to advance stair mechanics, cont to work on calcaneal mobility & forefoot mobility
--- NOTE | 2018-07-30 10:27 | PT.OTN ---
Current Diagnoses Displaced bimalleolar fracture of left lower leg, initial encounter for closed fracture (07/30/18) Physical Therapy Treatment Note PT-OP-A Visit Information Start: 06/27/18 09:00 Freq: Status: Active Protocol: Document 07/30/18 09:08 EA (Rec: 07/30/18 09:46 EA [id number]) Out-Patient Physical Therapy Visit Information Visit Information Visit Type Treatment Note Visit Start Time 09:00 Visit Stop Time 09:50 Total Visit Minutes 50 Visit Number 8 Number of MEDICAL BILLING CODER Visits 1 PT-OP-B Current Condition Start: 06/27/18 09:00 Freq: Status: Active Protocol: Document 06/27/18 10:11 EA (Rec: 06/27/18 10:28 EA [id number]) Current Condition History of Current Condition Onset Date 03/2016 Current Complaints Left ankle localized pain with occasional dorsum numbness History of Current Condition Present condition started after ankle ORIF on due to bimalleolar comminuted fracture. Patient reports 80% recovered after formal PT but pain and aches did not resolved until today's date. Patient went to her doctor a month ago and reports no significant tissue damaged or DJD noted based on x-ray taken last month. Prior Treatments and Tests Fromal PT in 2016 after surgery Future Testing and Treatments Planned Possible rods/nail removal if PT fails Treatment Goals Patient/Caregiver Goals Patient wants to reduce ankle pain from 5/10 to 1/10. Patient wants to be able to go down stairs without difficulty Prior Functional Status Baseline Function- ADL's Independent Baseline Function- Mobility Independent Baseline Function- Gait Indep prior to surgery in 2016 Baseline Function- Work/School House Baseline Function- Recreation/Hobbies Performed regular yoga and fitness exercises Current Functional Impairments (Reported) Functional Limitations- ADL's Indep Functional Limitations- Mobility/Gait Standing, distance amb < 5 minutes Functional Limitations- Work/School House Functional Limitations- Recreation/ Unable to perform regular Hobbies fitness exercises routine due to increased in pain PT-OP-C Subjective Start: 06/27/18 09:00 Freq: Status: Active Protocol: Document 07/30/18 09:08 EA (Rec: 07/30/18 09:46 EA [id number]) OP-PT Subjective Patient Comments Patient Comments Pt reports eft ankle is tender to touch but no swelling; states easy to get fatigue. PT-OP-G Mobility & Gait Start: 06/27/18 09:00 Freq: Status: Active Protocol: Document 06/27/18 14:30 EA (Rec: 06/27/18 14:36 EA [id number]) OP Gait Assessment Gait Gait Assistance Required: Independent Assistive Devices Assistive Device None Gait Deviations General Gait Pattern Antalgic Comments Gait Comments Slight decreased stance phase to left side Stair Climbing Evaluation Devices Stair Climbing Assistive Devices None Technique/Endurance Stair Climbing Direction Ascend and Descend Stair Climbing Technique Step to Step Comments Stair Climbing Comments Difficulty with descent. ( right foot leading) PT-OP-J Posture/Palpation/Skin Start: 06/27/18 09:00 Freq: Status: Active Protocol: Document 06/27/18 14:30 EA (Rec: 06/27/18 14:36 EA [id number]) Posture Evaluation Comments Posture Comments Slight pronated ankle Palpation Assessment Location One Palpation Location Medial, anterior and lateral prox L ankle joint, soleous Palpation Findings Soft Tissue Tightness Tenderness Palpation Details Mostly over the scar areas, Tight soleous PT-OP-K Range of Motion Start: 06/27/18 09:00 Freq: Status: Active Protocol: Document 06/27/18 14:36 EA (Rec: 06/27/18 14:39 EA [id number]) Ankle and Foot Goniometric Range of Motion Ankle and Foot Measured in Degrees Right Active Ankle/Foot ROM WFL Yes Left Active Testing Position Sitting Dorsiflexion with Knee Flexed 10 Dorsiflexion with Knee Extended 15 Plantarflexion 50 Inversion 35 Eversion 25 Toe Range of Motion Toe Measured in Degrees Left Great Toe Toe ROM WFL Yes PT-OP-L Special Tests Start: 06/27/18 09:00 Freq: Status: Active Protocol: Document 06/27/18 14:43 EA (Rec: 06/27/18 14:44 EA [id number]) Special Tests Foot/Ankle Special Tests Anterior Draw Test Results negative Talor Tilt Test Results negative PT-OP-Q Treatments Start: 06/27/18 09:00 Freq: Status: Active Protocol: Document 07/30/18 09:08 EA (Rec: 07/30/18 09:46 EA [id number]) Cardio Equipment Treadmill Duration (Minutes) 11 Speed 1.5-2.0 Incline 09/26/04/04 Other cues to push off with left off on elevation. Therapeutic Exercises Standing Exercises arch lifts Standing Exercise Name arch lift Reps/Minutes 10 5 Standing Exercise Name SLS Side left Reps/Minutes x 30 secs x 3 Comments even, green to blue foam 4 Standing Exercise Name BUSO standing: PF/DF/EVER/INV Reps/Minutes x 30 sec x 3 reps each 3 Standing Exercise Name steady lunges Reps/Minutes x 8 reps x 2 sets each leg 2 Standing Exercise Name double heel raises Side left Reps/Minutes x 10 reps x 2 sets Comments double to single 1 Standing Exercise Name step down FWD/BWD 6 Side bilateral Reps/Minutes 10 reps x 2 Comments Leading right: hand support Manual Therapy Treatment Soft Tissue Mobilization 1 Body Location Left calf, and ankle joint Mobilization Type Cross-Friction Manual Lymphatic Drainage Myofascial Release Rolling Sustained Pressure Trigger Point Release Intensity/Depth Deep Body Position Sitting Comments focus through med scar and med calcaneus PT-OP-R Modalities Start: 06/27/18 09:00 Freq: Status: Active Protocol: Document 07/30/18 09:08 EA (Rec: 07/30/18 09:46 EA [id number]) Hot Pack/Cold Pack Treatment Cold Pack Patient Position Sitting Treatment Duration (minutes) 10 Patient Tolerance Good PT-OP-T Assessment and Plan Start: 06/27/18 09:00 Freq: Status: Active Protocol: Document 07/30/18 09:08 EA (Rec: 07/30/18 09:46 EA [id number]) Physical Therapy Assessment Assessment Summary Assessment Tolerated treatment well. slight discomfort with heel raises. Informed patient to call her doctor for insurance authorization referral. Physical Therapy Plan Next Visit Focus/Plan Next Note Type Treatment Note Next Visit Plan cont to advance stair mechanics, cont to work on calcaneal mobility & forefoot mobility
--- NOTE | 2018-08-02 09:56 | PT.OTN ---
Current Diagnoses Displaced bimalleolar fracture of left lower leg, initial encounter for closed fracture (08/02/18) Physical Therapy Treatment Note PT-OP-A Visit Information Start: 06/27/18 09:00 Freq: Status: Active Protocol: Document 08/02/18 09:05 EA (Rec: 08/02/18 09:47 EA [id number]) Out-Patient Physical Therapy Visit Information Visit Information Visit Type Treatment Note Visit Start Time 09:00 Visit Stop Time 09:50 Total Visit Minutes 50 Visit Number 9 Number of MEDICAL CODING SPECIALIST Visits 1 PT-OP-B Current Condition Start: 06/27/18 09:00 Freq: Status: Active Protocol: Document 06/27/18 10:11 EA (Rec: 06/27/18 10:28 EA [id number]) Current Condition History of Current Condition Onset Date 03/2016 Current Complaints Left ankle localized pain with occasional dorsum numbness History of Current Condition Present condition started after ankle ORIF on due to bimalleolar comminuted fracture. Patient reports 80% recovered after formal PT but pain and aches did not resolved until today's date. Patient went to her doctor a month ago and reports no significant tissue damaged or DJD noted based on x-ray taken last month. Prior Treatments and Tests Fromal PT in 2016 after surgery Future Testing and Treatments Planned Possible rods/nail removal if PT fails Treatment Goals Patient/Caregiver Goals Patient wants to reduce ankle pain from 5/10 to 1/10. Patient wants to be able to go down stairs without difficulty Prior Functional Status Baseline Function- ADL's Independent Baseline Function- Mobility Independent Baseline Function- Gait Indep prior to surgery in 2016 Baseline Function- Work/School House Baseline Function- Recreation/Hobbies Performed regular yoga and fitness exercises Current Functional Impairments (Reported) Functional Limitations- ADL's Indep Functional Limitations- Mobility/Gait Standing, distance amb < 5 minutes Functional Limitations- Work/School House Functional Limitations- Recreation/ Unable to perform regular Hobbies fitness exercises routine due to increased in pain PT-OP-C Subjective Start: 06/27/18 09:00 Freq: Status: Active Protocol: Document 08/02/18 09:05 EA (Rec: 08/02/18 09:47 EA [id number]) OP-PT Subjective Patient Comments Patient Comments Pt reports ankle feels better after last session; states therapy is working well. Patient Reported Progress Improving PT-OP-G Mobility & Gait Start: 06/27/18 09:00 Freq: Status: Active Protocol: Document 06/27/18 14:30 EA (Rec: 06/27/18 14:36 EA [id number]) OP Gait Assessment Gait Gait Assistance Required: Independent Assistive Devices Assistive Device None Gait Deviations General Gait Pattern Antalgic Comments Gait Comments Slight decreased stance phase to left side Stair Climbing Evaluation Devices Stair Climbing Assistive Devices None Technique/Endurance Stair Climbing Direction Ascend and Descend Stair Climbing Technique Step to Step Comments Stair Climbing Comments Difficulty with descent. ( right foot leading) PT-OP-J Posture/Palpation/Skin Start: 06/27/18 09:00 Freq: Status: Active Protocol: Document 06/27/18 14:30 EA (Rec: 06/27/18 14:36 EA [id number]) Posture Evaluation Comments Posture Comments Slight pronated ankle Palpation Assessment Location One Palpation Location Medial, anterior and lateral prox L ankle joint, soleous Palpation Findings Soft Tissue Tightness Tenderness Palpation Details Mostly over the scar areas, Tight soleous PT-OP-K Range of Motion Start: 06/27/18 09:00 Freq: Status: Active Protocol: Document 06/27/18 14:36 EA (Rec: 06/27/18 14:39 EA [id number]) Ankle and Foot Goniometric Range of Motion Ankle and Foot Measured in Degrees Right Active Ankle/Foot ROM WFL Yes Left Active Testing Position Sitting Dorsiflexion with Knee Flexed 10 Dorsiflexion with Knee Extended 15 Plantarflexion 50 Inversion 35 Eversion 25 Toe Range of Motion Toe Measured in Degrees Left Great Toe Toe ROM WFL Yes PT-OP-L Special Tests Start: 06/27/18 09:00 Freq: Status: Active Protocol: Document 06/27/18 14:43 EA (Rec: 06/27/18 14:44 EA [id number]) Special Tests Foot/Ankle Special Tests Anterior Draw Test Results negative Talor Tilt Test Results negative PT-OP-Q Treatments Start: 06/27/18 09:00 Freq: Status: Active Protocol: Document 08/02/18 09:05 EA (Rec: 08/02/18 09:47 EA [id number]) Cardio Equipment Treadmill Duration (Minutes) 7 Speed 2-40 Other Interval Therapeutic Exercises Standing Exercises 7 Standing Exercise Name floor square foot coordination exercises Reps/Minutes x 10 ft x 2 sets Comments FWD/BWD 6 Standing Exercise Name Single leg side to side hop Reps/Minutes x 10 ft x 2 sets 5 Standing Exercise Name SLS Side left Reps/Minutes x 30 secs x 3 Comments even, green to blue foam 4 Standing Exercise Name BUSO step up FWD/BWD/side steps Reps/Minutes x 30 sec x 3 reps each 3 Standing Exercise Name Fwd/bwd lunges Reps/Minutes x 8 reps x 2 sets each leg 1 Standing Exercise Name step down FWD/BWD 6 Side bilateral Reps/Minutes 10 reps x 2 Comments Leading right: hand support Manual Therapy Treatment Soft Tissue Mobilization 1 Body Location Left calf, and ankle joint Mobilization Type Cross-Friction Manual Lymphatic Drainage Myofascial Release Rolling Sustained Pressure Trigger Point Release Intensity/Depth Deep Body Position Sitting Comments focus through med scar and med calcaneus Joint Mobilizations calcaneotalar Joint calcaneus Direction distraction, med glide & lat tilt FM PT-OP-R Modalities Start: 06/27/18 09:00 Freq: Status: Active Protocol: Document 08/02/18 09:55 EA (Rec: 08/02/18 09:55 EA [id number]) Hot Pack/Cold Pack Treatment Cold Pack Patient Position Sitting Treatment Duration (minutes) 10 Patient Tolerance Good PT-OP-T Assessment and Plan Start: 06/27/18 09:00 Freq: Status: Active Protocol: Document 08/02/18 09:53 EA (Rec: 08/02/18 09:55 EA [id number]) Physical Therapy Assessment Assessment Summary Assessment Patient tolerated light to mod impact exercises with good form execution; left leg fatigued quickly. Patient continued to improve, Advance as tolerated. Physical Therapy Plan Next Visit Focus/Plan Next Note Type Treatment Note
--- NOTE | 2018-08-08 10:04 | PT.OTN ---
Current Diagnoses Displaced bimalleolar fracture of left lower leg, initial encounter for closed fracture (08/08/18) Physical Therapy Treatment Note PT-OP-A Visit Information Start: 06/27/18 09:00 Freq: Status: Active Protocol: Document 08/08/18 09:05 EA (Rec: 08/08/18 09:09 EA [id number]) Out-Patient Physical Therapy Visit Information Visit Information Visit Type Treatment Note Visit Start Time 09:00 Visit Stop Time 09:50 Total Visit Minutes 55 Visit Number [address]TER Visits 1 PT-OP-B Current Condition Start: 06/27/18 09:00 Freq: Status: Active Protocol: Document 06/27/18 10:11 EA (Rec: 06/27/18 10:28 EA [id number]) Current Condition History of Current Condition Onset Date 03/2016 Current Complaints Left ankle localized pain with occasional dorsum numbness History of Current Condition Present condition started after ankle ORIF on due to bimalleolar comminuted fracture. Patient reports 80% recovered after formal PT but pain and aches did not resolved until today's date. Patient went to her doctor a month ago and reports no significant tissue damaged or DJD noted based on x-ray taken last month. Prior Treatments and Tests Fromal PT in 2016 after surgery Future Testing and Treatments Planned Possible rods/nail removal if PT fails Treatment Goals Patient/Caregiver Goals Patient wants to reduce ankle pain from 5/10 to 1/10. Patient wants to be able to go down stairs without difficulty Prior Functional Status Baseline Function- ADL's Independent Baseline Function- Mobility Independent Baseline Function- Gait Indep prior to surgery in 2016 Baseline Function- Work/School House Baseline Function- Recreation/Hobbies Performed regular yoga and fitness exercises Current Functional Impairments (Reported) Functional Limitations- ADL's Indep Functional Limitations- Mobility/Gait Standing, distance amb < 5 minutes Functional Limitations- Work/School House Functional Limitations- Recreation/ Unable to perform regular Hobbies fitness exercises routine due to increased in pain PT-OP-C Subjective Start: 06/27/18 09:00 Freq: Status: Active Protocol: Document 08/08/18 09:05 EA (Rec: 08/08/18 09:09 EA [id number]) OP-PT Subjective Patient Comments Patient Comments Pt reports left foot is sore 2 days ago after yard weeding due to bending; states today is much feeling better; states pain isbell she felt that it is getting better. Patient Reported Progress Improving PT-OP-G Mobility & Gait Start: 06/27/18 09:00 Freq: Status: Active Protocol: Document 06/27/18 14:30 EA (Rec: 06/27/18 14:36 EA [id number]) OP Gait Assessment Gait Gait Assistance Required: Independent Assistive Devices Assistive Device None Gait Deviations General Gait Pattern Antalgic Comments Gait Comments Slight decreased stance phase to left side Stair Climbing Evaluation Devices Stair Climbing Assistive Devices None Technique/Endurance Stair Climbing Direction Ascend and Descend Stair Climbing Technique Step to Step Comments Stair Climbing Comments Difficulty with descent. ( right foot leading) PT-OP-J Posture/Palpation/Skin Start: 06/27/18 09:00 Freq: Status: Active Protocol: Document 06/27/18 14:30 EA (Rec: 06/27/18 14:36 EA [id number]) Posture Evaluation Comments Posture Comments Slight pronated ankle Palpation Assessment Location One Palpation Location Medial, anterior and lateral prox L ankle joint, soleous Palpation Findings Soft Tissue Tightness Tenderness Palpation Details Mostly over the scar areas, Tight soleous PT-OP-K Range of Motion Start: 06/27/18 09:00 Freq: Status: Active Protocol: Document 06/27/18 14:36 EA (Rec: 06/27/18 14:39 EA [id number]) Ankle and Foot Goniometric Range of Motion Ankle and Foot Measured in Degrees Right Active Ankle/Foot ROM WFL Yes Left Active Testing Position Sitting Dorsiflexion with Knee Flexed 10 Dorsiflexion with Knee Extended 15 Plantarflexion 50 Inversion 35 Eversion 25 Toe Range of Motion Toe Measured in Degrees Left Great Toe Toe ROM WFL Yes PT-OP-L Special Tests Start: 06/27/18 09:00 Freq: Status: Active Protocol: Document 06/27/18 14:43 EA (Rec: 06/27/18 14:44 EA [id number]) Special Tests Foot/Ankle Special Tests Anterior Draw Test Results negative Talor Tilt Test Results negative PT-OP-Q Treatments Start: 06/27/18 09:00 Freq: Status: Active Protocol: Document 08/08/18 09:53 EA (Rec: 08/08/18 10:02 EA [id number]) Cardio Equipment Treadmill Duration (Minutes) 8 Speed 3-4 Other interval Gym Equipment Shuttle Recovery Unilateral Squats Details plyomterics Resistance 1 cord Reps/Time x 15 Shuttle Rebound 1 Exercise Details SLS with green foam to stand Reps/Duration x 5 mins Therapeutic Exercises Standing Exercises 9 Standing Exercise Name Calves stretch Reps/Minutes x 3 reps x 30SH Comments straight and knee bent 8 Standing Exercise Name Monster walk hopping Reps/Minutes x 2 lines of 30 ft Comments cues to hold on single leg x 5 seconds 7 Standing Exercise Name floor square foot coordination exercises Reps/Minutes x 10 ft x 2 sets Comments FWD/BWD 6 Standing Exercise Name Single leg side to side hop Reps/Minutes x 10 ft x 2 sets 4 Standing Exercise Name BUSO step up FWD/BWD/side steps Reps/Minutes x 30 sec x 3 reps each 3 Standing Exercise Name Fwd/bwd lunges Reps/Minutes x 8 reps x 2 sets each leg Comments w/ 3# DB front raises 1 Standing Exercise Name step down FWD/BWD 6 Side bilateral Reps/Minutes 10 reps x 2 Comments Leading right: hand support Manual Therapy Treatment Soft Tissue Mobilization 1 Body Location Left calf, and ankle joint Mobilization Type Cross-Friction Manual Lymphatic Drainage Myofascial Release Rolling Sustained Pressure Trigger Point Release Intensity/Depth Deep Body Position Sitting Comments focus through med scar and med calcaneus PT-OP-R Modalities Start: 06/27/18 09:00 Freq: Status: Active Protocol: Document 08/08/18 09:53 EA (Rec: 08/08/18 10:02 SRIRAM [id number]) Hot Pack/Cold Pack Treatment Cold Pack Patient Position Sitting Treatment Duration (minutes) 10 Patient Tolerance Good PT-OP-T Assessment and Plan Start: 06/27/18 09:00 Freq: Status: Active Protocol: Document 08/08/18 09:53 EA (Rec: 08/08/18 10:02 EA [id number]) Physical Therapy Assessment Assessment Summary Assessment No gait deviation during high interval walk on the treadmill; no difficulty with step/down in 6-12. Patient cont. to show mild tenderness over surgical scar. Overall patient is progressing very well. See patient after a week. Physical Therapy Plan Next Visit Focus/Plan Next Note Type Treatment Note Next Visit Plan advance exercises. Review HEP and discharge as appropriate. Fill up LEFS
--- NOTE | 2018-08-16 14:55 | PT.OTN ---
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 Patient reports 80% recovered after formal PT but pain and aches did not resolved until today's date. Patient went to her doctor a month ago and reports no significant tissue damaged or DJD noted based on x-ray taken last month. Prior Treatments and Tests Fromal PT in 2016 after surgery Future Testing and Treatments Planned Possible rods/nail removal if PT fails Treatment Goals Patient/Caregiver Goals Patient wants to reduce ankle pain from 5/10 to 1/10. Patient wants to be able to go down stairs without difficulty Prior Functional Status Baseline Function- ADL's Independent Baseline Function- Mobility Independent Baseline Function- Gait Indep prior to surgery in 2016 Baseline Function- Work/School House Baseline Function- Recreation/Hobbies Performed regular yoga and fitness exercises Current Functional Impairments (Reported) Functional Limitations- ADL's Indep Functional Limitations- Mobility/Gait Standing, distance amb < 5 minutes Functional Limitations- Work/School House Functional Limitations- Recreation/ Unable to perform regular Hobbies fitness exercises routine due to increased in pain PT-OP-C Subjective Start: 06/27/18 09:00 Freq: Status: Active Protocol: Document 08/16/18 14:26 EA (Rec: 08/16/18 14:33 EA [id number]) OP-PT Subjective Patient Comments Patient Comments Pt reports consistetn with HEP and has been doing out door lsow jog with no increased in symptoms; states that she is okay to discharge today and wants to know more HEP. PT-OP-G Mobility & Gait Start: 06/27/18 09:00 Freq: Status: Active Protocol: Document 06/27/18 14:30 EA (Rec: 06/27/18 14:36 EA [id number]) OP Gait Assessment Gait Gait Assistance Required: Independent Assistive Devices Assistive Device None Gait Deviations General Gait Pattern Antalgic Comments Gait Comments Slight decreased stance phase to left side Stair Climbing Evaluation Devices Stair Climbing Assistive Devices None Technique/Endurance Stair Climbing Direction Ascend and Descend Stair Climbing Technique Step to Step Comments Stair Climbing Comments Difficulty with descent. ( right foot leading) PT-OP-J Posture/Palpation/Skin Start: 06/27/18 09:00 Freq: Status: Active Protocol: Document 06/27/18 14:30 EA (Rec: 06/27/18 14:36 EA [id number]) Posture Evaluation Comments Posture Comments Slight pronated ankle Palpation Assessment Location One Palpation Location Medial, anterior and lateral prox L ankle joint, soleous Palpation Findings Soft Tissue Tightness Tenderness Palpation Details Mostly over the scar areas, Tight soleous PT-OP-K Range of Motion Start: 06/27/18 09:00 Freq: Status: Active Protocol: Document 06/27/18 14:36 EA (Rec: 06/27/18 14:39 EA [id number]) Ankle and Foot Goniometric Range of Motion Ankle and Foot Measured in Degrees Right Active Ankle/Foot ROM WFL Yes Left Active Testing Position Sitting Dorsiflexion with Knee Flexed 10 Dorsiflexion with Knee Extended 15 Plantarflexion 50 Inversion 35 Eversion 25 Toe Range of Motion Toe Measured in Degrees Left Great Toe Toe ROM WFL Yes PT-OP-L Special Tests Start: 06/27/18 09:00 Freq: Status: Active Protocol: Document 06/27/18 14:43 EA (Rec: 06/27/18 14:44 EA [id number]) Special Tests Foot/Ankle Special Tests Anterior Draw Test Results negative Talor Tilt Test Results negative PT-OP-Q Treatments Start: 06/27/18 09:00 Freq: Status: Active Protocol: Document 08/16/18 14:26 EA (Rec: 08/16/18 14:33 EA [id number]) Cardio Equipment Treadmill Duration (Minutes) 8 Speed 3-4 Incline 0-6 Other interval Gym Equipment Shuttle Recovery Unilateral Squats Details plyomterics Resistance 2 cord Reps/Time x 15 Shuttle Rebound 1 Exercise Details SLS with green foam to stand Reps/Duration x 5 mins Therapeutic Exercises Standing Exercises 11 Standing Exercise Name Floor marking astepin and out Reps/Minutes x 2 sets of 12 ft 10 Standing Exercise Name Buso squat with ball toss Reps/Minutes x 4 mins 9 Standing Exercise Name Calves stretch Reps/Minutes x 3 reps x 30SH Comments straight and knee bent 8 Standing Exercise Name Monster walk hopping Reps/Minutes x 2 lines of 30 ft Comments cues to hold on single leg x 5 seconds 7 Standing Exercise Name floor square foot coordination exercises Reps/Minutes x 10 ft x 2 sets Comments FWD/BWD 6 Standing Exercise Name Single leg side to side hop Reps/Minutes x 10 ft x 2 sets arch lifts Standing Exercise Name arch lift Reps/Minutes 10 5 Standing Exercise Name SLS Side left Reps/Minutes x 30 secs x 3 Comments even, green to blue foam 4 Standing Exercise Name BUSO step up FWD/BWD/side steps Reps/Minutes x 30 sec x 3 reps each 3 Standing Exercise Name Fwd/bwd lunges Reps/Minutes x 8 reps x 2 sets each leg Comments w/ 3# DB front raises 2 Standing Exercise Name double heel raises Side left Reps/Minutes x 10 reps x 2 sets Comments double to single 1 Standing Exercise Name step down FWD/BWD 6 Side bilateral Reps/Minutes 10 reps x 2 Comments Leading right: hand support Self-Care/Home Management Treatment Education Patient Education Home Exercise Program Joint Protection Pain Management Other Education Discussed safe progressive exercises PT-OP-R Modalities Start: 06/27/18 09:00 Freq: Status: Active Protocol: Document 08/16/18 14:26 EA (Rec: 08/16/18 14:33 EA [id number]) Hot Pack/Cold Pack Treatment Cold Pack Patient Position Sitting Treatment Duration (minutes) 10 Patient Tolerance Good PT-OP-T Assessment and Plan Start: 06/27/18 09:00 Freq: Status: Active Protocol: Document 08/16/18 14:26 EA (Rec: 08/16/18 14:33 EA [id number]) Physical Therapy Assessment Assessment Summary Assessment Patient exhibits no deviation in all form of standing exercises. Patient is discharge today due to reaching highest functional level and as well patient request. Physical Therapy Plan Discharge Physical Therapy Discharge Reasons Goals Met
--- NOTE | 2018-08-16 14:55 | PT.OPDS ---
Current Diagnoses Displaced bimalleolar fracture of left lower leg, initial encounter for closed fracture (08/16/18) Provider Visit Care Team Role Provider Type Cierra Chen MD Family Provider Physician Primary Care Provider Specialty: Family Practice Address: [address] [place] [address], [id number] Email: [email or web address] Hira Heart MD Attending Provider Physician Specialty: Orthopedic Surgery Address: [address] [place] [address], [address] Email: [email or web address] Visit Number Visit Number 11 Discharge Summary PT-OP-B Current Condition Start: 06/27/18 09:00 Freq: Status: Active Protocol: Document 06/27/18 10:11 EA (Rec: 06/27/18 10:28 EA [id number]) Current Condition History of Current Condition Onset Date 03/2016 Current Complaints Left ankle localized pain with occasional dorsum numbness History of Current Condition Present condition started after ankle ORIF on due to bimalleolar comminuted fracture. Patient reports 80% recovered after formal PT but pain and aches did not resolved until today's date. Patient went to her doctor a month ago and reports no significant tissue damaged or DJD noted based on x-ray taken last month. Prior Treatments and Tests Fromal PT in 2016 after surgery Future Testing and Treatments Planned Possible rods/nail removal if PT fails Treatment Goals Patient/Caregiver Goals Patient wants to reduce ankle pain from 5/10 to 1/10. Patient wants to be able to go down stairs without difficulty Prior Functional Status Baseline Function- ADL's Independent Baseline Function- Mobility Independent Baseline Function- Gait Indep prior to surgery in 2016 Baseline Function- Work/School House Baseline Function- Recreation/Hobbies Performed regular yoga and fitness exercises Current Functional Impairments (Reported) Functional Limitations- ADL's Indep Functional Limitations- Mobility/Gait Standing, distance amb < 5 minutes Functional Limitations- Work/School House Functional Limitations- Recreation/ Unable to perform regular Hobbies fitness exercises routine due to increased in pain PT-OP-C Subjective Start: 06/27/18 09:00 Freq: Status: Active Protocol: Document 08/16/18 14:26 EA (Rec: 08/16/18 14:33 EA [id number]) OP-PT Subjective Patient Comments Patient Comments Pt reports consistetn with HEP and has been doing out door lsow jog with no increased in symptoms; states that she is okay to discharge today and wants to know more HEP. PT-OP-G Mobility & Gait Start: 06/27/18 09:00 Freq: Status: Active Protocol: Document 06/27/18 14:30 EA (Rec: 06/27/18 14:36 EA [id number]) OP Gait Assessment Gait Gait Assistance Required: Independent Assistive Devices Assistive Device None Gait Deviations General Gait Pattern Antalgic Comments Gait Comments Slight decreased stance phase to left side Stair Climbing Evaluation Devices Stair Climbing Assistive Devices None Technique/Endurance Stair Climbing Direction Ascend and Descend Stair Climbing Technique Step to Step Comments Stair Climbing Comments Difficulty with descent. ( right foot leading) PT-OP-J Posture/Palpation/Skin Start: 06/27/18 09:00 Freq: Status: Active Protocol: Document 06/27/18 14:30 EA (Rec: 06/27/18 14:36 EA [id number]) Posture Evaluation Comments Posture Comments Slight pronated ankle Palpation Assessment Location One Palpation Location Medial, anterior and lateral prox L ankle joint, soleous Palpation Findings Soft Tissue Tightness Tenderness Palpation Details Mostly over the scar areas, Tight soleous PT-OP-K Range of Motion Start: 06/27/18 09:00 Freq: Status: Active Protocol: Document 06/27/18 14:36 EA (Rec: 06/27/18 14:39 EA [id number]) Ankle and Foot Goniometric Range of Motion Ankle and Foot Measured in Degrees Right Active Ankle/Foot ROM WFL Yes Left Active Testing Position Sitting Dorsiflexion with Knee Flexed 10 Dorsiflexion with Knee Extended 15 Plantarflexion 50 Inversion 35 Eversion 25 Toe Range of Motion Toe Measured in Degrees Left Great Toe Toe ROM WFL Yes PT-OP-L Special Tests Start: 06/27/18 09:00 Freq: Status: Active Protocol: Document 06/27/18 14:43 EA (Rec: 06/27/18 14:44 EA [id number]) Special Tests Foot/Ankle Special Tests Anterior Draw Test Results negative Talor Tilt Test Results negative PT-OP-T Assessment and Plan Start: 06/27/18 09:00 Freq: Status: Active Protocol: Document 08/16/18 14:26 EA (Rec: 08/16/18 14:33 EA [id number]) Physical Therapy Assessment Assessment Summary Assessment Patient exhibits no deviation in all form of standing exercises. Patient is discharge today due to reaching highest functional level and as well patient request. Physical Therapy Plan Discharge Physical Therapy Discharge Reasons Goals Met
== END 2018-08-16 16:41 ==
LOC: PHYS 13:00
PROVIDERS: Family Provider Family Medicine; PCP Family Medicine; Visit Provider Orthopaedic Surgery
DX: S82.842A Displaced bimalleolar fracture of left lower leg, initial encounter for closed fracture (principal)
CPT/HCPCS: 97010; 97014; 97110; 97116; 97140; 97161; 97535; G0283

== ENCOUNTER → 2018-10-22 08:59 | Outpatient (CLI) | payer OTHER, SELFPAY ==
[2018-10-22 11:04] LABS: Cholesterol 175 mg/dL (140-199); Glucose 83 mg/dL (70-100); HDL Cholesterol 99 mg/dL (40-60); LDL Cholesterol Calculated 67 mg/dL (<100); Triglycerides 45 mg/dL (35-150)
== END ==
PROVIDERS: PCP Family Medicine; Visit Provider Family Medicine
DX: Z00.00 Encounter for general adult medical examination without abnormal findings (principal); Z13.220 Encounter for screening for lipoid disorders
CPT/HCPCS: 36415; 80061; 82947

== ENCOUNTER → 2018-10-30 10:02 | Outpatient (CLI) | payer OTHER, SELFPAY | PROVIDERS: PCP Family Medicine; Visit Provider Family Medicine | DX: Z13.820 Encounter for screening for osteoporosis (principal); M85.851 Other specified disorders of bone density and structure, right thigh; Z78.0 Asymptomatic menopausal state; Z85.3 Personal history of malignant neoplasm of breast; Z82.62 Family history of osteoporosis | CPT/HCPCS: 77080 ==

== ENCOUNTER 2019-02-21 06:35 | Day surgery (SDC) | payer OTHER, SELFPAY ==
[2019-02-21] VITALS (24 sets, daily range): BP systolic 83–108; BP diastolic 51–73; PULSE 42–79; RESP 8–19; TEMP 35.6–36.4; O2SAT 96–100; BMI 18.6
[2019-02-21] MEDS: SODIUM CHLORIDE 0.9% 1,000 ML 200 ML IV ×3 (07:31→12:32)
--- NOTE | 2019-02-21 07:53 | P.HP_ITS ---
History of Present Illness Date Patient Seen: 02/21/19 Time Patient Seen: 07:51 Chief complaint: [id number] SCREENING COLONOSCOPY Narrative: 58-year-old woman who Sister developed rectal cancer. Presents for screening colonoscopy 5 years after last. Patient has a personal history of colon polyp with 1 removed on last scope. She tolerated her prep well No abdominal complaints Patient History Medical History (Updated 01/14/19 @ 14:18 by Diogo Dejesus MD) Osteopenia (Chronic) Anxiety and depression (Chronic) Personal history of malignant neoplasm of breast (Chronic) Surgical History (Updated 01/14/19 @ 14:18 by Diogo Dejesus MD) History of total mastectomy (07/10/13) Status post arthroscopy (07/02/15) Status post colonoscopy (04/03/14) Status post surgery (07/13/09) Family History (Updated 08/13/17 @ 00:00 by Conversion Provider) Child Age: 30 S/P tonsillectomy Migraines Pilonidal cyst Mother Age: 86 Diverticulitis Hypertension High cholesterol Bone disease Hiatal hernia Acid reflux Peripheral neuropathy Osteoarthritis Spondylolisthesis Grandfather Cancer Sister Age: 64 Breast cancer Scoliosis Sister Age: 62 Rectal cancer H/O total hysterectomy Sister Age: 57 Vertigo History of partial hysterectomy Social History household members: spouse Smoking Status: Never smoker Family & Social History Family History (Updated 08/13/17 @ 00:00 by Conversion Provider) Child Age: 30 S/P tonsillectomy Migraines Pilonidal cyst Mother Age: 86 Diverticulitis Hypertension High cholesterol Bone disease Hiatal hernia Acid reflux Peripheral neuropathy Osteoarthritis Spondylolisthesis Grandfather Cancer Sister Age: 64 Breast cancer Scoliosis Sister Age: 62 Rectal cancer H/O total hysterectomy Sister Age: 57 Vertigo History of partial hysterectomy Social History: household members spouse Tobacco & Substance use: Smoking Status Never smoker Meds Home Medications Medication Instructions Recorded Confirmed Type alprazolam 0.25 mg PO PRN PRN #0 09/13/17 02/21/19 History ihzmbxig-rgl-kbbzmcd fumarate 9 mg PO DAILY 12/12/17 02/21/19 History [Multi Vitamin] omega 6-azw-inl-fish oil [Fish Oil] 1,000 mg PO DAILY 12/12/17 02/21/19 History fluoxetine 10 mg capsule 10 mg PO DAILY #90 cap 11/06/18 02/21/19 Rx meclizine 25 mg tablet 25 mg PO DAILY PRN #30 tab 11/06/18 02/21/19 Rx raloxifene 60 mg tablet 60 mg PO QDAY #90 tab 11/06/18 02/21/19 Rx Allergies Allergy/AdvReac Type Severity Reaction Status Date / Time BENADINE AdvReac Unknown RASH Uncoded 11/06/18 15:19 TAPE AdvReac Unknown SENSITIVE Uncoded 11/06/18 15:19 TO TAPE/SKIN REDNESS Review of Systems Constitutional Constitutional: Denies fever(s) Eyes Eyes: Denies bulging eyes ENT Ears, Nose, Mouth, and Throat: No lip swelling Cardiovascular Cardiovascular: Denies generalize swelling Respiratory Respiratory: Denies stridor Gastrointestinal Gastrointestinal: Denies coffee ground emesis Musculoskeletal Musculoskeletal: Denies loss of height Integumentary/Breasts Skin/Breast: Denies wounds Neurologic Neurologic: Denies abnormal speech and Denies confusion Psychiatric Psychiatric: Denies confusion Endocrine Endocrine: Denies deepening of the voice Hematologic/Lymphatic Hematologic/Lymphatic: Denies lymphadenopathy Allergic/Immunologic Allergic/Immunologic: Denies lip swelling Exam Vital Signs (past 8 hours): - 02/21/19 07:29 Temperature 97.5 F L Pulse Rate 63 Respiratory Rate 15 Blood Pressure 108/73 Pulse Oximetry 100 Oxygen Delivery Method Room Air Const General: cooperative and healthy appearing Orientation: alert [facility] Head: normal to inspection Nose: nares normal Mouth: oral mucosae normal and lip normal Eyes Eyelids: eyelids normal Conjunctivae: conjunctivae normal Sclera: sclerae normal Neck Neck: supple and other (No thyromegally) Chest Chest: other (LCTAB , regular respiratory effort) Cardio Rhythm: regular rhythm Heart Sounds: S1 normal, S2 normal, no gallops, no murmurs and no rubs GI Other: Abdomen soft nontender nondistended Skin General: no rashes or lesions noted Neuro General: alert and awake Psych Appearance: grossly normal Affect: normal affect Assessment & Plan Assessment & Plan narrative: 58-year-old woman here for regular screening colonoscopy every 5 years given family history of colon cancer Risks and benefits including bleeding, perforation, , hypoxia, missed lesion all discussed All questions answered Patient ready to proceed
[2019-02-21] MEDS: fentaNYL 250 MCG/5 ML INJ IV (08:08)
[2019-02-21] MEDS: MIDAZOLAM 5 MG/5 ML VIAL IV (08:10)
[2019-02-21] MEDS: GLUCAGON,HUMAN RECOMBINANT 1 MG/ML VIAL IV (08:34)
--- NOTE | 2019-02-21 08:41 | SUR.OPER ---
MEDS TITRATED PER SURGEON, VITAL SIGNS STABLE, TOLERATED FAIRLY WELL, REQUIRED SHORT PERIOD OF ABDOMINAL PRESSURE, AND SOME TACTILE STIMULATION, PEDIATRIC SCOPE USED
--- NOTE | 2019-02-21 08:49 | PM.OP.ENDO ---
Operative Date/Time/Diagnoses Date of procedure: 02/21/19 Time of procedure: 08:49 Pre-op diagnosis: Increased risk of colorectal cancer Post-op diagnosis: same Procedure & Clinicians Study performed: Screening colonoscopy -complete Same procedure as scheduled: Yes Indications: 58-year-old woman with a personal history of colon polyps as well as family history of colorectal cancer -sister had rectal cancer Now presents 5 years after her most recent screening colonoscopy Surgeon: Frank Max Procedure Notes SCOAP/Timeout: Completed Procedure in detail: Patient was brought to the endoscopy suite, time-out was completed. Patient was sedated for the entire course of the procedure with 250 mcg of fentanyl and 6 mg of midazolam. A digital rectal exam was performed without lesions. 160 cm pediatric colonoscope was introduced through the anus -it was advanced navigating through the folds of the rectum and colon to the cecum. There was a tight hepatic flexure but otherwise the advancement of the scope proceeded without much difficulty. The cecum was readily identified via a prominent ileocecal valve and the appendiceal orifice. The colonoscope was then slowly withdrawn carefully visualizing the mucosal surfaces. I felt confident I could see 5 mm polyps. The prep was excellent. At the level of the mid sigmoid colon mild diverticular disease was identified, there was no active inflammation In the distal rectum the scope was retroflexed -no further lesions identified Scope withdrawal time: 16 Sedation minutes: 42 Specimen(s): none sent Complications: none Impression: Mild sigmoid diverticulosis No polyps seen Recommendations: Colonscopy in 5 years Plan for aftercare: PACU then home Follow up: as needed Disposition: PACU
--- NOTE | 2019-02-21 08:53 | P.OP.ENDO_ITS ---
Operative Date/Time/Diagnoses Date of procedure: 02/21/19 Time of procedure: 08:49 Pre-op diagnosis: Increased risk of colorectal cancer Post-op diagnosis: same Procedure & Clinicians Study performed: Screening colonoscopy -complete Same procedure as scheduled: Yes Indications: 58-year-old woman with a personal history of colon polyps as well as family history of colorectal cancer -sister had rectal cancer Now presents 5 years after her most recent screening colonoscopy Surgeon: Frank Max Procedure Notes SCOAP/Timeout: Completed Procedure in detail: Patient was brought to the endoscopy suite, time-out was co mpleted. Patient was sedated for the entire course of the procedure with 250 mcg of fentanyl and 6 mg of midazolam. A digital rectal exam was performed without lesions. 160 cm pediatric colonoscope was introduced through the anus - it was advanced navigating through the folds of the rectum and colon to the cecum. There was a tight hepatic flexure but otherwise the advancement of the scope proceeded without much difficulty. The cecum was readily identified via a prominent ileocecal valve and the appendiceal orifice. The colonoscope was then slowly withdrawn carefully visualizing the mucosal surfaces. I felt confident I could see 5 mm polyps. The prep was excellent. At the level of the mid sigmoid colon mild diverticular disease was identified, there was no active inflammation In the distal rectum the scope was retroflexed -no further lesions identified Scope withdrawal time: 16 Sedation minutes: 42 Specimen(s): none sent Complications: none Impression: Mild sigmoid diverticulosis No polyps seen Recommendations: Colonscopy in 5 years Plan for aftercare: PACU then home Follow up: as needed Disposition: PACU
--- NOTE | 2019-02-21 10:16 | SUR.PHASEI ---
DR CARDOZA IN TO SEE PT SHE REMAINS VERY SLEEPY, REMAINS IN SINUS ARRYTHMIA WITH HR 38-72, PER DR CARDOZA WE WILL CONTINUE TO OBSERVE. PT DENIES ANY PAIN OR DISCOMFORT, STATES SHE IS JUST VERY TIRED AND DID NOT GET MUCH SLEEP LAST NIGHT. ABDOMEN IS SOFT AND PT TOLERATING SIPS OF JUICE
--- NOTE | 2019-02-21 10:49 | SUR.PHASEI ---
DR CARDOZA AWARE OF PT VS AND STATES IT OS OK TO SEND TO PHASE 2, WATCH FOR AN ADDITIONAL 30 MIN THEN OK TO GO HOME IF STABLE.
--- NOTE | 2019-02-21 10:57 | SUR.PHASEII ---
report recieved, bradycardia notes. Patient sleeping, easily arousable to verbal stimuli, alert oriented asymptomatic. Denies syncope, dyspnea or chest pain. abdomen soft non tender to palpation. Denies nausea. taking oral hydration.
[2019-02-21] MEDS: ONDANSETRON 4 MG/2 ML INJ IV (12:08)
--- NOTE | 2019-02-21 12:34 | SUR.PHASEII ---
1155 pt c/o nausea, vomited small amt. c/o headache. VS stable. Abd soft. Dr. Max notified. VVO for 8mg zofran. Pt medicated.
--- NOTE | 2019-02-21 14:40 | SUR.PHASEII ---
1350 Pt more awake. Able to sit on the edge of the bed and stand without difficulty. Pt dressed with assistance from spouse.
--- NOTE | 2019-02-21 14:50 | SUR.PHASEII ---
Addendum 1320 Pt reported 1/10 headache. Nausea improved. Abd soft.
== END 2019-02-21 13:51 | disposition home or self-care (01) ==
PROVIDERS: Family Provider Family Medicine; PCP Family Medicine; Visit Provider Surgery
PROC: 0DJD8ZZ Inspection of Lower Intestinal Tract, Via Natural or Artificial Opening Endoscopic (ICD-10-PCS; CPT 45378; principal; 2019-02-21 07:45)
DX: Z12.11 Encounter for screening for malignant neoplasm of colon (principal); F41.9 Anxiety disorder, unspecified; F32.9 Major depressive disorder, single episode, unspecified; Z80.0 Family history of malignant neoplasm of digestive organs; K57.30 Diverticulosis of large intestine without perforation or abscess without bleeding
CPT/HCPCS: 45378; 99152; 99153; J1610; J2250; J2405; J3010

== ENCOUNTER → 2020-04-07 07:14 | Outpatient (CLI) | payer OTHER, SELFPAY ==
[2020-04-07 09:01] LABS: Cholesterol 194 mg/dL (140-199); HDL Cholesterol 102 mg/dL (40-60); LDL Cholesterol Calculated 80 mg/dL (<100); Triglycerides 58 mg/dL (35-150)
[2020-04-07 09:32] LABS: Thyroid Stimulating Hormone 4.65 uIU/mL (0.47-4.68)
== END ==
PROVIDERS: Family Provider Family Medicine; PCP Family Medicine; Referring Provider Family Medicine; Visit Provider Family Medicine
DX: Z13.220 Encounter for screening for lipoid disorders (principal); Z13.29 Encounter for screening for other suspected endocrine disorder
CPT/HCPCS: 36415; 80061; 84443

== ENCOUNTER → 2021-04-21 12:06 | Outpatient (CLI) | payer OTHER, SELFPAY ==
--- NOTE | 2021-04-21 12:07 | DI.RAD.S_ITS ---
PROCEDURE: XR DEXA AXIAL SKELETON INDICATIONS: osteopenia COMPARISON: [facility], CR, XR DEXA AXIAL SKELETON, 10/30/2018, 10:26. FINDINGS: This blank DEXA report has been sent in error by the PACS system. The correct and complete report will be forthcoming in 1-2 days. Thank you for your patience and understanding. Dictated by: Fina Serrano MD, PhD on 04/21/2021 at 15:30 Approved by: Fina Serrano MD, PhD on 04/21/2021 at 15:30
== END ==
PROVIDERS: Family Provider Family Medicine; PCP Family Medicine; Referring Provider Family Medicine; Visit Provider Family Medicine
DX: M85.851 Other specified disorders of bone density and structure, right thigh (principal); Z78.0 Asymptomatic menopausal state; Z82.62 Family history of osteoporosis
CPT/HCPCS: 77080

== ENCOUNTER → 2022-03-09 09:37 | Outpatient (CLI) | payer OTHER, SELFPAY ==
[2022-03-09 12:43] LABS: COVID19 -Nasal RAPID Negative (Negative)
== END ==
PROVIDERS: Family Provider Family Medicine; PCP Family Medicine; Visit Provider Surgery
DX: Z20.822 Contact with and (suspected) exposure to COVID-19 (principal); Z01.812 Encounter for preprocedural laboratory examination
CPT/HCPCS: 87635; C9803

== ENCOUNTER 2022-03-10 12:26 | Day surgery (SDC) | payer OTHER, SELFPAY ==
--- NOTE | 2022-03-10 | PATH_ITS ---
[facility] Accession Number: [id number] . 01 Material submitted: . PART A: stomach - ANTRUM PART B: esophagus - DISTAL ESOPHAGEAL . 01 Diagnosis: A. Antrum, Biopsy: Gastric antral mucosa with mild chronic inflammation. Negative for Helicobacter organisms by immunohistochemistry. Negative for intestinal metaplasia. Negative for dysplasia or malignancy. . B. Distal Esophagus, Biopsy: Squamocolumnar junctional mucosa with mild chronic inflammation. Negative for specialized intestinal metaplasia on AB/PAS stain. Negative for dysplasia or malignancy. MRV 03/16/2022 1330 Local . 01 Electronically signed: . Manny Tran MD, PhD, Pathologist NPI- [id number] . 01 Gross description: . Part A: ANTRUM: Received in formalin are 3 fragment(s) of loya, soft tissue measuring 0.5 x 0.2 x 0.1 cm to 0.2 x 0.2 x 0.1 cm submitted entirely in 1 cassette(s) Part B: DISTAL ESOPHAGEAL: Received in formalin are 3 fragment(s) of loya, soft tissue measuring 0.4 x 0.1 x 0.1 cm to 0.3 x 0.2 x 0.1 cm submitted entirely in 1 cassette(s) /CPE 03/11/2022 0817 Local . 01 Microscopic: . A. An immunohistochemical stain was performed to evaluate for Helicobacter organisms and is negative. The control stain showed appropriate reactivity. . B. An AB/PAS stain is performed to evaluate for specialized intestinal metaplasia, and is negative for goblet cells. A control stain shows appropriate reactivity. . * This test was developed and its performance characteristics determined by [employer]. It has not been cleared or approved by the U.S. Food and Drug Administration. The FDA has determined that such clearance or approval is not necessary. This test is used for clinical purposes. It should not be regarded as investigational or for research. . 01 Pathologist provided ICD-10: R13.10, K29.70, K20.80 . 01 CPT . 835857, 708480, J75903, 095184 Specimen Comment: A courtesy copy of this report has been sent to [phone] Performed at: 01 [facility] [address] [place] [address], [place], [place] [id number] MD Seng Keyes MD Phone: [phone]
[2022-03-10 12:36] VITALS: BP 118/73; PULSE 66; RESP 16; TEMP 36.8; O2SAT 99; BMI 19.3
[2022-03-10] MEDS: LACTATED RINGERS 1,000 ML 150 ML IV (12:50)
[2022-03-10] MEDS: LIDOCAINE 4% SOLN 50 ML 20 ML TOP (13:20)
[2022-03-10] MEDS: fentaNYL 100 MCG/2 ML INJ 25 MCG IV (13:28)
[2022-03-10] MEDS: MIDAZOLAM 5 MG/5 ML VIAL 7 MG IV (13:28)
--- NOTE | 2022-03-10 13:36 | P.OP.EGD_ITS ---
Operative Date/Time/Diagnoses Date of procedure: 03/10/22 Time of procedure: 13:36 Pre-op diagnosis: Dysphagia Post-op diagnosis: same Procedure & Clinicians Study performed: Esophagogastroduodenoscopy Same procedure as scheduled: Yes Surgeon: Raymundo Restrepo Procedure Notes Procedure in detail: Surgeon: Raymundo Restrepo MD A timeout was performed. Topical lidocaine was administered to the posterior oropharynx. A bite blocked was placed. The patient was positioned in the left lateral decubitus position. Sedation was administered with Versed and fentanyl. The endoscope was inserted through the bite block and passed through the esophagus and stomach and into the duodenum. The duodenal mucosa appeared normal. A photograph was taken. The scope was withdrawn into the duodenal bulb and no abnormalities were noted. The scope was withdrawn into the stomach. There was mild antritis and random biopsies were taken from the antrum. The rest of the stomach was normal. The scope was retroflexed and there was a very small hiatal hernia. The scope was withdrawn into the esophagus and there was some mild distal esophagitis and random biopsies were taken from around the Z- line. The remainder of the esophagus was normal. The scope was withdrawn. The patient was awakened and brought to recovery. Versed: 7 Fentanyl: 25 Findings: Mild antritis and mild distal esophagitis Sedation minutes: 12 Post-procedure Recommendations: Will call with biopsy results Disposition: PACU
[2022-03-10 13:38] VITALS: BP 100/66; PULSE 64; RESP 14; TEMP 36.4; O2SAT 98
[2022-03-10 13:42] VITALS: BP 94/62; PULSE 63; RESP 16; O2SAT 98
[2022-03-10 13:53] VITALS: BP 97/66; PULSE 60; RESP 16; O2SAT 98
[2022-03-10 13:58] VITALS: BP 100/70; PULSE 80; RESP 16; TEMP 36.8; O2SAT 98
== END 2022-03-10 14:30 | disposition home or self-care (01) ==
PROVIDERS: Family Provider Family Medicine; PCP Family Medicine; Referring Provider Surgery; Visit Provider Surgery
PROC: 0DJD8ZZ Inspection of Lower Intestinal Tract, Via Natural or Artificial Opening Endoscopic (ICD-10-PCS; CPT 45378; principal; 2022-03-10 13:45)
DX: R13.10 Dysphagia, unspecified (principal); K44.9 Diaphragmatic hernia without obstruction or gangrene; K20.90 Esophagitis, unspecified without bleeding; K29.50 Unspecified chronic gastritis without bleeding
CPT/HCPCS: 43239; 99152; J2250; J3010

== ENCOUNTER → 2022-05-10 14:02 | Outpatient (CLI) | payer OTHER, SELFPAY | PROVIDERS: Family Provider Family Medicine; PCP Family Medicine; Referring Provider Family Medicine; Visit Provider Family Medicine | DX: M85.852 Other specified disorders of bone density and structure, left thigh; Z78.0 Asymptomatic menopausal state; C50.919 Malignant neoplasm of unspecified site of unspecified female breast; Z79.810 Long term (current) use of selective estrogen receptor modulators (SERMs) | CPT/HCPCS: 77080 ==

== ENCOUNTER → 2022-05-25 15:14 | Outpatient (CLI) | payer OTHER, SELFPAY ==
--- NOTE | 2022-05-25 15:15 | DI.RAD.S_ITS ---
PROCEDURE: XR TOE RT MIN 2V INDICATIONS: Right toe pain TECHNIQUE: 3 views of the 4th toe(s) acquired. COMPARISON: [facility], CR, XR FOOT 3 VIEWS WEIGHT BEARING LEFT, 11/11/2020, 10:58. FINDINGS: Bones: There is a nondisplaced fracture at the base of the 4th proximal phalanx with intra-articular involvement. No suspicious bony lesions. Soft tissues: No suspicious soft tissue densities. IMPRESSION: Nondisplaced intra-articular fracture at the 4th proximal phalangeal base. Dictated by: Jaquan Rodriguez M.D. on 05/26/2022 at 8:01 Approved by: Jaquan Rodriguez M.D. on 05/26/2022 at 8:44
== END ==
PROVIDERS: Family Provider Family Medicine; PCP Family Medicine; Referring Provider Nurse Practitioner Family; Visit Provider Nurse Practitioner Family
DX: S92.514A Nondisplaced fracture of proximal phalanx of right lesser toe(s), initial encounter for closed fracture (principal); X58.XXXA Exposure to other specified factors, initial encounter
CPT/HCPCS: 73660

== ENCOUNTER → 2022-07-01 11:29 | Outpatient (CLI) | payer OTHER, SELFPAY ==
--- NOTE | 2022-07-01 11:48 | DI.RAD.S_ITS ---
PROCEDURE: XR FOOT RT MIN 3V INDICATIONS: 4th toe fracture TECHNIQUE: 3 views of the foot were acquired. COMPARISON: None. FINDINGS: Bones: There is a fracture of the medial base of the 4th proximal phalanx which involves the articular surface. No suspicious bony lesions. Soft tissues: No tibiotalar joint effusion. Achilles tendon appears normal. IMPRESSION: Nondisplaced fracture of the medial base of the 4th proximal phalanx which involves the articular surface. Dictated by: Charbel Mclean M.D. on 07/01/2022 at 15:21 Approved by: Charbel Mclean M.D. on 07/01/2022 at 15:23
== END ==
PROVIDERS: Family Provider Family Medicine; PCP Family Medicine; Referring Provider Family Medicine; Visit Provider Family Medicine
DX: Z09 Encounter for follow-up examination after completed treatment for conditions other than malignant neoplasm (principal); S92.514A Nondisplaced fracture of proximal phalanx of right lesser toe(s), initial encounter for closed fracture; X58.XXXA Exposure to other specified factors, initial encounter
CPT/HCPCS: 73630

== ENCOUNTER → 2023-09-18 09:38 | Outpatient (CLI) | payer OTHER, SELFPAY ==
--- NOTE | 2023-09-18 09:40 | DI.RAD.S_ITS ---
PROCEDURE: FL BARIUM SWALLOW W SPEECH INDICATIONS: dysphagia COMPARISON: None. TECHNIQUE: Examination was conducted in conjunction with speech pathology per standard protocol. In the lateral projection, filming was performed of the patient swallowing. AP projection filming may also be performed with patient swallowing. COMPARISON: FINDINGS: Function: The oral preparatory phase appears normal, with proper containment. The subsequent oral propulsive phase, pharyngeal phase, and esophageal phase of swallowing also appear normal with all proffered substances. No laryngotracheal penetration or aspiration. No pathologic vallecular pooling. There were a few spontaneous episodes of tertiary contractions resulting in delayed and retrograde flow of ingested oral contrast material. Morphology: No cricopharyngeal bar is identified. No cervical esophageal webs. No Zenker's diverticulum. No strictures. Patient was able to pass a standard barium tablet without difficulty. IMPRESSION: A few spontaneous episodes of tertiary contractions/esophageal spasms resulting in delayed and/or retrograde flow of ingested contrast. Otherwise, unremarkable barium swallow study. Consider further evaluation with gastroenterology consultation. Please see separate speech pathology report for further details. Dictated by: Keegan Carlos M.D. on 09/18/2023 at 12:11 Approved by: Keegan Carlos M.D. on 09/18/2023 at 12:14
--- NOTE | 2023-09-18 12:54 | ST.SWALLOW ---
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 Chen Reason for Referral dysphagia Setting Setting Outpatient Care Patient Information Identification Type Name,Date of Patient History Pt was seen for a Modified Barium Swallow Study at the referral of Dr. Chen.. Pt reports she has been having difficulty with swallowing with c/o foods/liquids getting stuck in her throat. She describes intermittent coughing, especialy with liquids and a globus sensation with solids and pills. Pt has a PMH of GERD (takes Omneprozol 1x/day in mornings) , bilateral mastectomies, PND due to allergies (takes Corinne). Pt also noted she is frequently clearing her throat secondary to PND. Pt was seen for EGD on 03/10/22 with results indicating mild antritis and mild distal esophagitis(see radiology report). Subjective Observations Pt was seated in the fluoroscopy chair with directions and procedure described for her. She indicated she understood and agreed to proceed. Patient Positioning Position View Lat-A/P Imaging Lateral View Textures Administered Trials Presented Thin Liquid via Spoon (IDDSI 0 ),Thin Liquid via Cup (IDDSI 0 ),Extremely Thick Liquid via Spoon (IDDSI 4),Regular (IDDSI 7) Barium Tablet Yes The IDDSI Framework Protocol: IDDSI.1 Oral Impairment Source: The Modified Barium Swallow Impairment Profile (MBSImP??) Lip Closure No labial escape Tongue Control During Bolus Hold Cohesive bolus between tongue to palatal seal Bolus Preparation/Mastication Timely & efficient chewing & mashing Bolus Transport/Lingual Motion Brisk tongue motion Oral Residue Trace residue lining oral structures Location Tongue Initiation of Pharyngeal Swallow Bolus head at posterior laryngeal surface of epiglottis Additional Oral Impairment Observations OME and DKS were observed to be WNL. Natural dentition in good hygiene. Mastication with rotary chew noted. Good bolus formation, control and AP transition. Pharyngeal Impairment Source: The Modified Barium Swallow Impairment Profile (MBSImP??) Soft Palate Elevation No bolus between soft palate & pharyngeal wall Laryngeal Elevation Part.sup.move.thyroid cart/ part.approx.arytenoids to epiglot.petiole Anterior Hyoid Excursion Partial anterior movement Epiglottic Movement Complete inversion Laryngeal Vestibular Closure Complete; no air/contrast in laryngeal vestibule Pharyngeal Stripping Wave Present - complete Pharyngoesophageal Segment Opening Partial distention/partial duration; partial obstruction of flow Tongue Base Retraction Trace column of contrast/air betwn tongue base & post. pharyngeal wall Pharyngeal Residue Trace residue within/on pharyngeal structures Location Tongue base Additional Pharyngeal Impairment Overall, pt's pharyngeal Observations swallow phase was observed to be WFL. Mild tongue base retraction weakness affected hyolaryngeal elevation and movement. Epiglottal inversion was complete with good seal of the laryngeal vestibule. No laryngeal penetration or tracheal aspiration were observed. Osteophytes at C5-C6, along with forward curvature of the cervical spine, appeared reduce the PES opening duration and extension. The overall flow of the bolus was WFL. This may result in the pt's globus sensation and/or trigger a coughing reflex. A/P View Textures Administered Trials Presented Thin Liquid via Spoon (IDDSI 0 ),Regular (IDDSI 7) The IDDSI Framework Protocol: IDDSI.1 A/P View Observations Pharyngeal Contraction Complete Esophageal Clearance Upright Position Esophageal retention w/ regtrograde flow below pharyngoesoph segment Vocal Fold Function Good Esophageal Function Reverse Peristalsis,Stasis, Narrowing Additional A-P Observations Retention of esophageal contrast noted with position change from lateral to AP. Tertiary contractions with retro-flow of contents were noted with solids and liquids. This coincided with pt reporting a (referred) sticking sensation. Barium tablet passed through esophagus in a timely manner. Clinical Impressions Dysphagia Type Esophageal Findings Pt's oral and pharyngeal phases of swallowing were observed to be WNL-WFL. A reduction of PES opening extension/duration as well as mild esophageal dysmotility were observed with retro flow of esophageal contents. A referral to GI for further assessment is recommended. The results of the MBSS were described and discussed with the pt. It was recommended that the pt increase fluids during meals to aid in esophageal clearance to the stomach. Additionally, remaining upright following meals to allow for gravity assistance in esophageal clearance was recommended. Patient Appropriate for Therapy No Recommendations Diet Comments No recommended change in diet; increase liquids during meals Treatment Plan Recommended Referrals GI Consult Additional Strategies Recommended Remain upright after eating/ drinking to allow for gravity assist
== END ==
LOC: RAD 09:39
PROVIDERS: Family Provider Family Medicine; PCP Family Medicine; Referring Provider Family Medicine; Visit Provider Family Medicine
DX: R13.10 Dysphagia, unspecified (principal)
CPT/HCPCS: 74230; 92611

== ENCOUNTER 2025-01-05 17:03 | Emergency (ER) | payer MEDICARE, OTHER, SELFPAY ==
[2025-01-05] VITALS (7 sets, daily range): BP systolic 121–156; BP diastolic 68–73; PULSE 58–72; RESP 12–20; TEMP 37.1; O2SAT 94–99; BMI 19.2
--- NOTE | 2025-01-05 17:24 | EKG_ITS ---
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
--- NOTE | 2025-01-05 17:24 | DI.RAD.S_ITS ---
PROCEDURE: XR CHEST 1V INDICATIONS: Chest Pain TECHNIQUE: One view of the chest was acquired. COMPARISON: (Prior imaging is not available for review from the archive at the time of this dictation.) FINDINGS: Surgical changes and devices: Bilateral mastectomy change. Lungs and pleura: Lungs are clear. No pleural effusions or pneumothorax. Mediastinum: Mediastinal contours appear normal. Heart size is normal. Bones and chest wall: No suspicious bony lesions. Age-appropriate bony degenerative changes are seen. Mild dextroconvex scoliotic curvature is seen. Overlying soft tissues appear unremarkable. IMPRESSION: No acute cardiopulmonary abnormality is seen. Postoperative and degenerative changes are seen. Dictated by: Lizandro Castrejon M.D. on 01/05/2025 at 16:58 Approved by: Lizandro Castrejon M.D. on 01/05/2025 at 16:59
[2025-01-05 17:39] LABS: Add Manual Diff / Slide Review NO; Basophils Absolute Auto 0 /uL (0-100); Basophils Percent Auto 0.5 % (0-2); Eosinophils Absolute Auto 0 /uL (0-450); Eosinophils Percent Auto 0.2 % (2-4); Hematocrit 37.4 % (36-46); Hemoglobin 12.5 g/dL (12.0-16.0); Lymphocytes Absolute Auto 1500 /uL (1100-4500); Lymphocytes Percent Auto 19.2 % (25-40); Mean Corpuscular HGB Conc 33.4 % (30-36); Mean Corpuscular Hemoglobin 30.4 PG (26-34); Mean Corpuscular Volume 91.1 fL (80-100); Monocytes Absolute Auto 500 /uL (0-900); Monocytes Percent Auto 6.9 % (3-14); Neutrophils Absolute Auto 5800 /uL (1500-7000); Neutrophils Percent Auto 73.2 % (50-75); Platelet Count 251 X10^3/uL (150-400); Red Blood Cell Count 4.11 X10^6/uL (4.0-5.2); Red Cell Distribution Width 13.6 % (11.6-14.8); White Blood Cell Count 7.9 X10^3/uL (4.5-11.0)
[2025-01-05 17:44] LABS: INR 0.9 (0.9-1.3); Prothrombin Time 10.7 SECONDS (9.4-12.5)
[2025-01-05 17:46] LABS: PTT Partial Thromboplastin Tim 36 SECONDS (25.1-36.5)
[2025-01-05 17:49] LABS: Alanine Aminotransferase 21 IU/L (<35); Albumin 4.4 g/dL (3.5-5.0); Albumin Globulin Ratio 1.5 (1.0-2.8); Alkaline Phosphatase 60 U/L (38-126); Aspartate Aminotransferase 34 IU/L (14-36); BUN Creatinine Ratio 19.2 (6-22); Bilirubin Total 0.3 mg/dL (0.2-1.3); Blood Urea Nitrogen 14 mg/dL (7-17); Calcium 9.3 mg/dL (8.4-10.2); Carbon Dioxide 30 mmol/L (22-32); Chloride 102 mmol/L (98-107); Creatine Kinase 52 U/L (30-135); Estimated Glomerular Filt Rate > 60 mL/min (>60); Glucose 119 mg/dL (70-99); HEMOLYSIS < 15 (0-50); Lipase 45 U/L (23-300); Magnesium 1.9 mg/dL (1.6-2.3); Potassium 3.8 mmol/L (3.4-5.1); Sodium 139 mmol/L (137-145); Total Protein 7.4 g/dL (6.3-8.2)
[2025-01-05 18:01] LABS: NT-proBNP (BNP-Adult 18+) 57 pg/mL (<125); Troponin I < 0.012 ng/mL (0.01-0.034)
[2025-01-05 19:48] LABS: Troponin I < 0.012 ng/mL (0.01-0.034)
[2025-01-05] MEDS: ASPIRIN 81 MG CHEW TAB 324 MG PO (20:35)
--- NOTE | 2025-01-05 20:48 | PC.NURSE ---
Pt reprots she has been working out in [employer] x1-2 week. Pt states she was laying in bed when she woke up around [id number] with chest discomfort and feeling like her heart was racing. She states this feeling has come and gone throughout the day. No edema. Pt reports no cardiac surgeries or taking any heart medications. Pt states she does not believe she was consuming enough water as she should. Pt states she feels some epigastric ache. Denies SOB.
--- NOTE | 2025-01-05 21:10 | ED.CHESTPAIN ---
HPI - Chest Pain General Chief Complaint: Chest Pain Stated Complaint: arrhythmia Time Seen by Provider: 01/05/25 21:10 Source: patient Mode of arrival: Ambulatory History of Present Illness HPI narrative: Patient is a 64-year-old female past medical history of anxiety, depression, presents for evaluation of palpitation. She states that last week she was having hiccups of her heart. She states that today at 4:30 p.m. she felt like it was racing, she states that she is having some chest discomfort but denies any actual shortness of breath. Has any actual chest pain. She denies any other symptoms such as headache visual disturbances fever chills nausea vomiting abdominal pain or any other GI/ symptoms time. Related Data Home Medications ?Medication ?Instructions ?Recorded ?Confirmed multivitamin with minerals-iron 9 mg PO DAILY 12/12/17 09/04/23 fumarate 9 mg iron/15 mL oral liquid (Multi Vitamin) omega 8-yuu-fcm-fish oil 1,000 mg 1,000 mg PO DAILY 12/12/17 09/04/23 (120 mg-180 mg) capsule (Fish Oil) omeprazole PO 02/23/22 09/04/23 Previous Rx's ?Medication ?Instructions ?Recorded cholecalciferol (vitamin D3) 50 50 mcg PO DAILY #30 caps 04/15/20 mcg (2,000 unit) capsule lutein 20 mg capsule 20 mg PO DAILY #30 caps 04/15/20 fluoxetine 10 mg capsule (Prozac) 10 mg PO Q OTHER DAY #45 caps 04/16/24 Allergies Allergy/AdvReac Type Severity Reaction Status Date / Time povidone-iodine (From AdvReac Rash Verified 01/05/25 17:20 Betadine) TAPE AdvReac Unknown SENSITIVE Uncoded 01/05/25 17:20 TO TAPE/SKIN REDNESS Review of Systems Review of Systems Narrative: General: Denies fever, chills, weight loss HEENT: Denies headache, eye drainage, eye irritation, head trauma, sore throat, voice change Cardiovascular: Positive palpitations Respiratory: Denies any shortness of breath, cough, wheeze, stridor GI/: Denies any abdominal pain, nausea, vomiting, diarrhea, bright red blood per rectum, melanotic stools, urinary frequency, urinary retention, dysuria, hematuria MSK: Denies any joint pain, muscle pains, swelling Skin: Denies any rashes, lesions, discoloration Neuro: Denies any headache, lightheadedness, dizziness, fainting, weakness Psych: Denies SI/HI Patient History Medical History (Updated 01/05/25 @ 21:26 by Abdirashid Hawkins DO) GERD (gastroesophageal reflux disease) Osteopenia Anxiety and depression Personal history of malignant neoplasm of breast Surgical History Status post arthroscopy (07/02/15) Status post colonoscopy (04/03/14) History of total mastectomy (07/10/13) Status post surgery (07/13/09) Family History Child Age: 33 S/P tonsillectomy Migraines Pilonidal cyst Mother Age: 89 Diverticulitis Hypertension High cholesterol Bone disease Hiatal hernia Acid reflux Peripheral neuropathy Osteoarthritis Spondylolisthesis Grandfather Cancer Sister Age: 67 Breast cancer Scoliosis Sister Age: 65 Rectal cancer H/O total hysterectomy Sister Age: 60 Vertigo History of partial hysterectomy Father Lung cancer Social History household members: spouse Smoking Status: Never smoker alcohol intake: never Smoking Status: Never smoker Exam Narrative Exam Narrative: General: Cooperative, well-developed, not in acute distress HEENT: Normocephalic, atraumatic, PERRLA, normal sclera, eyelids normal Neck: Active full range of motion, atraumatic Chest: Normal to inspection, negative crepitus, no overlying erythema ecchymosis Respiratory: Normal respiratory effort, not in acute respiratory distress, clear to auscultation bilaterally negative cough, wheeze, tachypnea, rhonchi, rales Cardiology: Regular rate rhythm negative gallop, murmur, rubs GI/: No tenderness to palpation, soft, non rigid, normal to inspection, exam deferred MSK: Full active range of motion in all 4 extremities, atraumatic, no tenderness to palpation of any bony prominences Skin: No rashes or lesions noted Neuro: Alert awake oriented x3, moves all 4 extremities spontaneously, cranial nerves intact, able to answer all questions appropriately follows commands appropriately Psych: Cooperative, negative suicidal or homicidal ideations Initial Vital Signs Initial Vital Signs: Vital Signs Temperature 98.7 F 01/05/25 17:20 Pulse Rate 72 01/05/25 17:20 Respiratory Rate 16 01/05/25 17:20 Blood Pressure 132/71 01/05/25 17:20 Pulse Oximetry 99 01/05/25 17:20 Oxygen Delivery Method Room Air 01/05/25 17:20 Course Orders Ordered: ED Orders 01/05/25 17:24 XR chest 1V Stat EKG-12 Lead Stat 01/05/25 17:29 Complete Blood Count AUTO DIFF Stat Comprehensive Metabolic Panel Stat Lipase Stat Magnesium Stat NT-proBNP (BNP-Adult 18+) Stat PTT Partial Thromboplastin Clarence Stat Prothrombin Time INR Stat Troponin & CK Cardiac Panel Stat 01/05/25 19:20 Trop I [Troponin I] Stat Discontinued Medications Aspirin (Aspirin 81 Mg Chew Tab) 324 mg PO NOW ONE Stop: 01/05/25 17:24 Last Admin: 01/05/25 20:35 Dose: 324 mg Documented By: QUINTIN Vital Signs Vital signs: Vital Signs - 8 hr 01/05/25 17:20 01/05/25 20:17 01/05/25 20:19 Temperature 98.7 F Pulse Rate 72 68 Respiratory Rate 16 Blood Pressure 132/71 156/70 H Pulse Oximetry 99 94 Oxygen Delivery Method Room Air 01/05/25 20:19 01/05/25 20:30 01/05/25 20:30 Temperature Pulse Rate 58 L 68 Respiratory Rate 20 Blood Pressure 122/68 Pulse Oximetry 99 97 Oxygen Delivery Method 01/05/25 21:00 01/05/25 21:00 Temperature Pulse Rate 64 Respiratory Rate 13 Blood Pressure 133/71 Pulse Oximetry 98 Oxygen Delivery Method MDM - Chest Pain Differential Diagnosis Differential diagnosis: Likely unstable angina pectoris, atypical chest pain, st elevation myocardial infarction, costochondritis, chest pain and other (Electrolyte abnormality, pneumonia, ACS, ) Lab Data 01/05/25 17:29 01/05/25 17:29 Labs: Lab Results 01/05/25 01/05/25 Range/Units 17:29 19:20 WBC 7.9 (4.5-11.0) X10^3/uL RBC 4.11 (4.0-5.2) X10^6/uL Hgb 12.5 (12.0-16.0) g/dL Hct 37.4 (36-46) % MCV 91.1 (80-100) fL MCH 30.4 (26-34) PG MCHC 33.4 (30-36) % RDW 13.6 (11.6-14.8) % Plt Count 251 (150-400) X10^3/uL Neut % (Auto) 73.2 (50-75) % Lymph % (Auto) 19.2 L (25-40) % Brewster % (Auto) 6.9 (3-14) % Eos % (Auto) 0.2 L (2-4) % Baso % (Auto) 0.5 (0-2) % Neut # (Auto) 5800 (1218-8390) /uL Lymph # (Auto) 1500 (2453-6435) /uL Brewster # (Auto) 500 (0-900) /uL Eos # (Auto) 0 (0-450) /uL Baso # (Auto) 0 (0-100) /uL PT 10.7 (9.4-12.5) SECONDS INR 0.9 (0.9-1.3) APTT 36 (25.1-36.5) SECONDS Sodium 139 (137-145) mmol/L Potassium 3.8 (3.4-5.1) mmol/L Chloride 102 (98-107) mmol/L Carbon Dioxide 30 (22-32) mmol/L BUN 14 (7-17) mg/dL Creatinine 0.73 (0.52-1.04) mg/dL Estimated GFR > 60 (>60) mL/min BUN/Creatinine Ratio 19.2 (6-22) Glucose 119 H (70-99) mg/dL Calcium 9.3 (8.4-10.2) mg/dL Magnesium 1.9 (1.6-2.3) mg/dL Total Bilirubin 0.3 (0.2-1.3) mg/dL AST 34 (14-36) IU/L ALT 21 (<35) IU/L Alkaline Phosphatase 60 (38-126) U/L Total Creatine Kinase 52 (30-135) U/L Troponin I < 0.012 < 0.012 (0.01-0.034) ng/mL NT-Pro-B Natriuret Pep 57 (<125) pg/mL Total Protein 7.4 (6.3-8.2) g/dL Albumin 4.4 (3.5-5.0) g/dL Globulin 3.0 (1.7-4.1) g/dL Albumin/Globulin Ratio 1.5 (1.0-2.8) Lipase 45 (23-300) U/L Imaging Data Chest x-ray: Radiologist's Impression: [address] [address] XRay Report Signed Patient: Marisa Vaughan MR#: [id number] : 1960 Acct:[id number] Age/Sex: 64 / F Date of Service: 01/05/25 Loc: ED Accession Number: [id number] Procedure: XR chest 1V Ordering Provider: Lea Herrera MD PROCEDURE: XR CHEST 1V INDICATIONS: Chest Pain TECHNIQUE: One view of the chest was acquired. COMPARISON: (Prior imaging is not available for review from the archive at the time of this dictation.) FINDINGS: Surgical changes and devices: Bilateral mastectomy change. Lungs and pleura: Lungs are clear. No pleural effusions or pneumothorax. Mediastinum: Mediastinal contours appear normal. Heart size is normal. Bones and chest wall: No suspicious bony lesions. Age-appropriate bony degenerative changes are seen. Mild dextroconvex scoliotic curvature is seen. Overlying soft tissues appear unremarkable. IMPRESSION: No acute cardiopulmonary abnormality is seen. Postoperative and degenerative changes are seen. ECG Data Interpretation: EKG interpreted ED physician sinus 77 beats per minute QTC 416, normal axis nonspecific ST changes no STEMI MDM Narrative Medical decision making narrative: Patient is a 64-year-old female with a past medical history anxiety depression presenting for palpitations, she states it has been ongoing persistent for the past several days, worse today, also started complaining of chest discomfort but no actual chest pain. Patient had lab work imaging EKG performed here in the emergency department, EKG nonischemic in nature, chest x-ray without any acute cardiopulmonary abnormalities, patient's lab work without any leukocytosis, Chem panel unremarkable, troponin negative x2, patient with a heart score of 2 for age. Patient was instructed to follow up with primary care and Cardiology in outpatient setting, she verbalized understanding of this and agrees to being discharged home with outpatient follow up Discharge Plan Departure Patient Disposition: Home Clinical Impression: Palpitations Instructions: DI for Palpitations Activity Restrictions/Additional Instructions: Please follow up with Cardiology and primary care Please read the discharge instructions sheet carefully and bring all papers to all doctor follow-up visits, as it may contain information that your doctor may want to see. Disease processes change and evolve, if your symptoms worsen or if you develop any new symptoms that are concerning to you please return for evaluation. Your evaluation today does not show any evidence of any life-threatening/serious illnesses requiring admission to the hospital or surgery. Please follow-up with your doctor for re-evaluation in approximately 1 day. Seek immediate medical attention for any worrisome symptoms. *If you do not have a primary care provider please contact the [facility] Resource line at [phone]. They will ask some questions about your medical history and help get you set up with a doctor in the community. Prescriptions: No Action lutein 20 mg capsule 20 mg PO DAILY Qty: 30 0RF Rx Instructions: give with meal/snack cholecalciferol (vitamin D3) 50 mcg (2,000 unit) capsule 50 mcg PO DAILY Qty: 30 0RF fluoxetine [Prozac] 10 mg capsule 10 mg PO Q OTHER DAY Qty: 45 2RF omeprazole PO omega 7-eex-aks-fish oil [Fish Oil] 1,000 mg (120 mg-180 mg) Capsule 1,000 mg PO DAILY Multi Vitamin 9 mg iron/15 mL Liquid 9 mg PO DAILY Referrals: Jairo Hanks MD [Physician, Cardiology] Cierra Chen MD [Primary Care Provider, Family Practice] Stand Alone Forms: Patient Portal/API
== END 2025-01-05 22:16 | disposition home or self-care (01) ==
PROVIDERS: Student in an Organized Health Care Education/Training Program; Emergency Provider Student in an Organized Health Care Education/Training Program; Family Provider Family Medicine; PCP Family Medicine
DX: R00.2 Palpitations (principal); R07.89 Other chest pain
CPT/HCPCS: 71045; 80053; 82550; 83690; 83735; 83880; 84484; 85025; 85610; 85730; 93005; 99283; 99284

== ENCOUNTER 2025-01-07 03:59 | Emergency (ER) | payer MEDICARE, OTHER, SELFPAY ==
[2025-01-07 04:05] VITALS: BP 125/62; PULSE 70; RESP 14; TEMP 36.8; O2SAT 99; BMI 19.2
--- NOTE | 2025-01-07 04:11 | EKG_ITS ---
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
--- NOTE | 2025-01-07 04:23 | DI.RAD.S_ITS ---
PROCEDURE: XR CHEST 1V INDICATIONS: Chest Pain TECHNIQUE: One view of the chest was acquired. COMPARISON: [facility], CR, XR CHEST 1V, 01/05/2025, 17:39. FINDINGS AND IMPRESSION: On this single view study, no airspace consolidation or pleural effusion is seen. Normal heart size. Left chest wall clips. Degenerative osseous changes. No significant changes from the preliminary report. Dictated by: Moiz Galdamez M.D. on 01/07/2025 at 7:46 Approved by: Moiz Galdamez M.D. on 01/07/2025 at 7:47
[2025-01-07 04:49] VITALS: PULSE 64; O2SAT 99
[2025-01-07 04:50] VITALS: BP 131/70; PULSE 63; O2SAT 98
[2025-01-07 05:00] VITALS: BP 121/71; PULSE 64; O2SAT 97
[2025-01-07 05:01] LABS: Add Manual Diff / Slide Review NO; Basophils Absolute Auto 0 /uL (0-100); Basophils Percent Auto 0.8 % (0-2); Eosinophils Absolute Auto 100 /uL (0-450); Eosinophils Percent Auto 1.7 % (2-4); Hematocrit 37.8 % (36-46); Hemoglobin 12.6 g/dL (12.0-16.0); Lymphocytes Absolute Auto 1800 /uL (1100-4500); Lymphocytes Percent Auto 30.8 % (25-40); Mean Corpuscular HGB Conc 33.4 % (30-36); Mean Corpuscular Hemoglobin 30.2 PG (26-34); Mean Corpuscular Volume 90.4 fL (80-100); Monocytes Absolute Auto 500 /uL (0-900); Monocytes Percent Auto 8.5 % (3-14); Neutrophils Absolute Auto 3300 /uL (1500-7000); Neutrophils Percent Auto 58.2 % (50-75); Platelet Count 244 X10^3/uL (150-400); Red Blood Cell Count 4.18 X10^6/uL (4.0-5.2); Red Cell Distribution Width 13.8 % (11.6-14.8); White Blood Cell Count 5.7 X10^3/uL (4.5-11.0)
[2025-01-07 05:10] LABS: INR 0.9 (0.9-1.3); Prothrombin Time 10.6 SECONDS (9.4-12.5)
[2025-01-07 05:13] LABS: PTT Partial Thromboplastin Tim 35 SECONDS (25.1-36.5)
[2025-01-07 05:14] LABS: Alanine Aminotransferase 21 IU/L (<35); Albumin 4.5 g/dL (3.5-5.0); Albumin Globulin Ratio 1.6 (1.0-2.8); Alkaline Phosphatase 58 U/L (38-126); Aspartate Aminotransferase 33 IU/L (14-36); BUN Creatinine Ratio 20.3 (6-22); Bilirubin Total 0.6 mg/dL (0.2-1.3); Blood Urea Nitrogen 16 mg/dL (7-17); Calcium 9.6 mg/dL (8.4-10.2); Carbon Dioxide 30 mmol/L (22-32); Chloride 101 mmol/L (98-107); Creatine Kinase 40 U/L (30-135); Estimated Glomerular Filt Rate > 60 mL/min (>60); Globulin 2.8 g/dL (1.7-4.1); Glucose 98 mg/dL (70-99); HEMOLYSIS < 15 (0-50); Lipase 58 U/L (23-300); Magnesium 1.9 mg/dL (1.6-2.3); Sodium 135 mmol/L (137-145); Total Protein 7.3 g/dL (6.3-8.2)
[2025-01-07 05:26] LABS: NT-proBNP (BNP-Adult 18+) 35 pg/mL (<125); Troponin I < 0.012 ng/mL (0.01-0.034)
[2025-01-07 05:30] VITALS: BP 122/67; PULSE 63; RESP 23; O2SAT 98
[2025-01-07 06:00] VITALS: BP 114/63; PULSE 66; RESP 18; O2SAT 97
--- NOTE | 2025-01-07 06:07 | ED_ITS ---
HPI - Arrhythmia/Palpitations General Chief Complaint: Arrhythmia/Palpitations Stated Complaint: RHR, night sweats Time Seen by Provider: 01/07/25 05:06 Source: patient Mode of arrival: Ambulatory History of Present Illness HPI narrative: 64-year-old woman with a history mild anxiety presents after a 2nd episode of heart palpitation. Current episode woke her from sleep around 3:00 a.m. this morning stood about 20 minutes was associated with diaphoresis and has resolved completely at this point with no residual effects. A week ago she was noting an occasional irregular heartbeat. She was seen in the emergency room on the with similar complaints of palpitations without chest pain. She has never had similar problems, describes slight increase in overall stress, no new medications, no increase in caffeine, alcohol, energy drinks Related Data Home Medications ?Medication ?Instructions ?Recorded ?Confirmed multivitamin with minerals-iron 9 mg PO DAILY 12/12/17 09/04/23 fumarate 9 mg iron/15 mL oral liquid (Multi Vitamin) omega 8-mey-vgh-fish oil 1,000 mg 1,000 mg PO DAILY 09/04/23 (120 mg-180 mg) capsule (Fish Oil) omeprazole PO 02/23/22 09/04/23 Previous Rx's ?Medication ?Instructions ?Recorded cholecalciferol (vitamin D3) 50 50 mcg PO DAILY #30 ca ps 04/15/20 mcg (2,000 unit) capsule lutein 20 mg capsule 20 mg PO DAILY #30 caps 03/25 10/10 fluoxetine 10 mg capsule (Prozac) 10 mg PO Q OTHER DAY #45 caps 04/16/24 Allergies Allergy/AdvReac Type Severity Reaction Status Date / Time povidone-iodine (From AdvReac Rash Verified 01/05/25 17:20 Betadine) TAPE AdvReac Unknown SENSITIVE Uncoded 01/05/25 17:20 TO TAPE/SKIN REDNESS Review of Systems Review of Systems Narrative: Pertinent positive and negative findings as per HPI Patient History Medical History GERD (gastroesophageal reflux disease) Osteopenia Anxiety and depression Personal history of malignant neoplasm of breast Surgical History Status post arthroscopy (07/02/15) Status post colonoscopy (04/03/14) History of total mastectomy (07/10/13) Status post surgery (07/13/09) Family History Child Age: 36 S/P tonsillectomy Migraines Pilonidal cyst Mother Age: 92 Diverticulitis Hypertension High cholesterol Bone disease Hiatal hernia Acid reflux Peripheral neuropathy Osteoarthritis Spondylolisthesis Grandfather Cancer Sister Age: 70 Breast cancer Scoliosis Sister Age: 68 Rectal cancer H/O total hysterectomy Sister Age: 63 Vertigo History of partial hysterectomy Father Lung cancer Social History household members: spouse alcohol intake: never Exam Initial Vital Signs Initial Vital Signs: Vital Signs Temperature 98.2 F 01/07/25 04:05 Pulse Rate 70 01/07/25 04:05 Respiratory Rate 14 01/07/25 04:05 Blood Pressure 125/62 01/07/25 04:05 Pulse Oximetry 99 01/07/25 04:05 Oxygen Delivery Method Room Air 01/07/25 04:05 General: Healthy appearing, in no acute distress. Able to give a complete and coherent history. Well-nourished well-developed HEENT: Moist mucous membranes, normal sclera with reactive pupils, Respiratory: Lungs are clear to auscultation, no wheezing no rales no rhonchi. Full and symmetrical air movement Cardiac: Regular rate and rhythm no murmurs no bruits Abdomen: Soft, nontender, Skin: Warm and dry, no rashes Neurologic: Grossly neurologically intact with no obvious asymmetries or abnormalities Extremities: No lower extremity edema Psych: Cooperative, appropriate insight and affect Course Orders Ordered: ED Orders 01/07/25 04:06 EKG-12 Lead Stat 01/07/25 04:23 XR chest 1V Stat 01/07/25 04:50 Complete Blood Count AUTO DIFF Stat Comprehensive Metabolic Panel Stat Lipase Stat Magnesium Stat NT-proBNP (BNP-Adult 18+) Stat PTT Partial Thromboplastin Clarence Stat Prothrombin Time INR Stat Troponin & CK Cardiac Panel Stat Discontinued Medications Aspirin (Aspirin 81 Mg Chew Tab) 324 mg PO NOW ONE Stop: 01/07/25 04:24 Vital Signs Vital signs: Vital Signs - 8 hr 01/07/25 04:05 01/07/25 04:49 01/07/25 04:50 Temperature 98.2 F Pulse Rate 70 64 63 Respiratory Rate 14 Blood Pressure 125/62 Pulse Oximetry 99 99 98 Oxygen Delivery Method Room Air 01/07/25 04:50 01/07/25 05:00 01/07/25 05:00 Temperature Pulse Rate 64 Respiratory Rate Blood Pressure 131/70 121/71 Pulse Oximetry 97 Oxygen Delivery Method MDM - Arrhythmia/Palpitations Lab Data 01/07/25 04:50 01/07/25 04:50 Labs: Lab Results 01/07/25 Range/Units 04:50 WBC 5.7 (4.5-11.0) X10^3/uL RBC 4.18 (4.0-5.2) X10^6/uL Hgb 12.6 (12.0-16.0) g/dL Hct 37.8 (36-46) % MCV 90.4 (80-100) fL MCH 30.2 (26-34) PG MCHC 33.4 (30-36) % RDW 13.8 (11.6-14.8) % Plt Count 244 (150-400) X10^3/uL Neut % (Auto) 58.2 (50-75) % Lymph % (Auto) 30.8 (25-40) % [place] % (Auto) 8.5 (3-14) % Eos % (Auto) 1.7 L (2-4) % Baso % (Auto) 0.8 (0-2) % Neut # (Auto) 3300 (2030-7819) /uL Lymph # (Auto) 1800 (4382-7669) /uL [place] # (Auto) 500 (0-900) /uL Eos # (Auto) 100 (0-450) /uL Baso # (Auto) 0 (0-100) /uL PT 10.6 (9.4-12.5) SECONDS INR 0.9 (0.9-1.3) APTT 35 (25.1-36.5) SECONDS Sodium 135 L (137-145) mmol/L Potassium 4.0 (3.4-5.1) mmol/L Chloride 101 (98-107) mmol/L Carbon Dioxide 30 (22-32) mmol/L BUN 16 (7-17) mg/dL Creatinine 0.79 (0.52-1.04) mg/dL Estimated GFR > 60 (>60) mL/min BUN/Creatinine Ratio 20.3 (6-22) Glucose 98 (70-99) mg/dL Calcium 9.6 (8.4-10.2) mg/dL Magnesium 1.9 (1.6-2.3) mg/dL Total Bilirubin 0.6 (0.2-1.3) mg/dL AST 33 (14-36) IU/L ALT 21 (<35) IU/L Alkaline Phosphatase 58 (38-126) U/L Total Creatine Kinase 40 (30-135) U/L Troponin I < 0.012 (0.01-0.034) ng/mL NT-Pro-B Natriuret Pep 35 (<125) pg/mL Total Protein 7.3 (6.3-8.2) g/dL Albumin 4.5 (3.5-5.0) g/dL Globulin 2.8 (1.7-4.1) g/dL Albumin/Globulin Ratio 1.6 (1.0-2.8) Lipase 58 (23-300) U/L MDM Narrative Medical decision making narrative: 64-year-old woman with what who is like increasing intensity duration and symptomatology of palpitations. Today had a 20 minute episode of palpitations that was not painful but it does make her diaphoretic. A spontaneously slowed back to what is now sinus rhythm. Blood work including double troponins were unremarkable today. Chest x-ray was reassuring. EKG does not show significant abnormalities. We do need to try and capture this rhythm on an EKG to better focus our workup. To that end, I did suggest she try calling 911 if this happens again to see if they are able to at least capture the rhythm. She does have a follow up appointment with the primary care physician, she continues to have frequent episodes than a Zio patch may be helpful in diagnosing the rhythm as well. At this time there was no indication for further workup or hospitalization and she is safe for discharge Discharge Plan Departure Patient Disposition: Home Clinical Impression: Palpitations Instructions: DI for Arrhythmias Activity Restrictions/Additional Instructions: Thank you for coming into It does seem like your episodes of palpitation or becoming more pronounced. You had initially described an occasional irregular heartbeat. When you were here on the you did not describe any diaphoresis and tonight's episode he describes as 20 minutes of palpitations that did not cause pain but did cause some mild diaphoresis. Your workup in the emergency department shows that you have returned to a normal sinus rhythm, your chest x-ray is normal all of your blood work is reassuring with no signs of infection, heart attack or obvious rhythm abnormalities Because these episodes are relatively short-lived and we do need to catch an episode with an EKG to know what rhythm this is to give you better advice I would recommend the next time this happens that you actually call 911. When they arrived please explain that you are having palpitations, you have been trying to get an EKG while you are having the palpitations and ask them if they can perform an EKG. Just because you call 911 does not mean that you have to come to the emergency department. If you are able to capture the rhythm abnormality on an EKG, it has since resolved, please make sure that you keep part of the EKG that was done and show a to your primary care physician Please do keep your appointment with your primary care physician next week as scheduled If you find that you are getting worse or develop any new symptoms, please feel free to return to the emergency department for further evaluation. Prescriptions: No Action lutein 20 mg capsule 20 mg PO DAILY Qty: 30 0RF Rx Instructions: give with meal/snack cholecalciferol (vitamin D3) 50 mcg (2,000 unit) capsule 50 mcg PO DAILY Qty: 30 0RF fluoxetine [Prozac] 10 mg capsule 10 mg PO Q OTHER DAY Qty: 45 2RF omeprazole PO omega 9-scs-rxp-fish oil [Fish Oil] 1,000 mg (120 mg-180 mg) Capsule 1,000 mg PO DAILY Multi Vitamin 9 mg iron/15 mL Liquid 9 mg PO DAILY Referrals: Cierra Chen MD [Primary Care Provider, Family Practice] Stand Alone Forms: Patient Portal/API
== END 2025-01-07 06:28 | disposition home or self-care (01) ==
PROVIDERS: Emergency Provider Emergency Medicine; Family Provider Family Medicine; PCP Family Medicine
DX: R00.2 Palpitations (principal)
CPT/HCPCS: 36415; 71045; 80053; 82550; 83690; 83735; 83880; 84484; 85025; 85610; 85730; 93005; 93010; 99283; 99284

== ENCOUNTER → 2025-01-23 07:49 | Outpatient (CLI) | payer MEDICARE, OTHER, SELFPAY | LOC: CAR 07:50 | PROVIDERS: PCP Family Medicine; Referring Provider Family Medicine; Visit Provider Family Medicine | DX: R00.2 Palpitations (principal) | CPT/HCPCS: 93246 ==

== ENCOUNTER → 2025-02-21 14:09 | Outpatient (CLI) | payer MEDICARE, OTHER, SELFPAY ==
[2025-02-21 15:38] LABS: Thyroid Stimulating Hormone 1.57 uIU/mL (0.47-4.68)
[2025-02-22 20:11] LABS: Anti Thyroglobulin Antibody 1.1 IU/mL (0.0-0.9)
== END ==
PROVIDERS: PCP Family Medicine; Referring Provider Family Medicine; Visit Provider Family Medicine
DX: R42 Dizziness and giddiness (principal); Z13.29 Encounter for screening for other suspected endocrine disorder
CPT/HCPCS: 36415; 84443; 86376; 86800